=== PATIENT | female | born 1945 | race Caucasian/White ===

== ENCOUNTER 2023-06-15 23:00 | Observation (INO) | payer OTHER, SELFPAY ==
[2023-06-15] VITALS (7 sets, daily range): BP systolic 111–161; BP diastolic 58–95; BMI 15.3
[2023-06-15 17:39] LABS: % Basophils 0.7 % (0-2); % Eosinophils 2.7 % (0-6); % Immature Granulocytes 0.6 % (0-0.5); % Lymphocytes 17.9 % (20.5-51.1); % Monocytes 10.1 % (1.7-9.3); Absolute Basophils 0.1 10^3/uL (0-0.2); Absolute Eosinophils 0.3 10^3/uL (0-0.7); Absolute Immature Granulocytes 0.1 10^3/uL (0-0.05); Absolute Lymphocytes 2.2 10^3/uL (1.2-3.4); Absolute Monocytes 1.3 10^3/uL (0.1-0.6); Absolute Neutrophils 8.4 10^3/uL (1.4-6.5); Hematocrit 34.7 % (37.0-47.0); Hemoglobin 11.5 g/dL (12.0-16.0); Mean Corp Hgb Conc. 33.1 g/dL (33.0-37.0); Mean Corpuscular Hgb 33.5 pg (27.0-31.0); Mean Corpuscular Volume 101.2 fL (81.0-99.0); Nucleated Red Blood Cells % 0 %; Red Blood Cell Count 3.43 10^6/uL (4.20-5.40); Red Cell Dist. Width 20.9 % (11.5-14.5); White Blood Cell Count 12.4 10^3/uL (4.8-10.8)
[2023-06-15 17:53] LABS: Mean Platelet Volume 10.1 fL (7.4-10.4); Platelet Count 611 10^3/uL (130-400)
[2023-06-15 18:04] LABS: ALT (SGPT) 13 U/L (0-35); AST (SGOT) 30 U/L (14-36); Albumin 3.1 g/dl (3.5-5.0); Alkaline Phosphatase 119 U/L (38-126); Blood Urea Nitrogen 8 mg/dl (7-17); Calcium 8.2 mg/dl (8.4-10.2); Carbon Dioxide 28 mmol/L (22-30); Chloride 102 mmol/L (98-107); Estimated Creatinine Clearance 46 ml/min; Glucose 91 mg/dl (70-99); Lipase 129 U/L (23-300); Sodium 132 mmol/L (135-145); Total Bilirubin 1.1 mg/dl (0.2-1.3); Total Protein 6.1 g/dl (6.3-8.2); eGFR > 60.00
[2023-06-15] MEDS: NSS 1000 IV ×2 (19:14→23:17)
[2023-06-15] MEDS: ZOFRAN 4 MG IV (19:14)
[2023-06-15 21:05] LABS: Urine Albumin Trace (Neg - Trace); Urine Bilirubin 1+ (Negative); Urine Character Clear (Clear); Urine Color Yellow; Urine Glucose Negative (Negative); Urine Ketone Trace (Negative); Urine Leukocyte Negative (Negative); Urine Nitrite Negative (Negative); Urine Occult Blood Negative (Negative); Urine Urobilinogen 3+ (Neg - 1+)
--- NOTE | 2023-06-15 21:31 | ED.GENMED ---
History of Present Illness
General
Chief Complaint: Abdominal Symptoms
Source: patient
Exam Limitations: none
Time Seen by Provider: 06/15/23 18:49
Travel History
Have you had any contact with someone who has COVID-19?: No
Do you have any symptoms of coronavirus? Fever > 100 degrees, chills, cough, shortness of breath, sore throat, loss of taste or smell, muscle aches, or headache?: No
History of Present Illness
History of Present Illness:
This is a 77 year old female that comes in with c/o 5 days of vomiting. States that she was unable to keep anything down. States that water was even hard. States that she did not have any vomiting today. States that she is also wondering what is
going on with her leg. States that she doesn't even know who the doctor is and that the PT who was there today at her home is also wondering. Patient states that she was nauseated and vomiting with a headache. Denies any fever, chils, chest pain,
SOB, abd pain, diarrhea, dizziness, urinary burning.
Past History
Past History
ED Past Medical History: CVA (X 3), HTN, Hypercholesterolemia, Psychiatric (Anxiety) and Other (Left leg fracture, Back and neck pain. Spinal fractures, PVD, Blind left eye, )
ED Past Surgical History: None, Orthopedic (Right femur fracture repair), Tonsilectomy and Other (Cataracts, Depression)
Social History
Tobacco: Smoker
Alcohol: Occasional
Personal:
Living: with family
Employment: Not employed
Review of Systems
Review of Systems
All Other Systems: ROS reviewed and negative except as documented in HPI and ROS
Constitutional: Reports no symptoms; Denies fever or chills
EENT: Reports no symptoms
Respiratory: Reports no symptoms; Denies cough or trouble breathing
Cardiac: Reports no symptoms; Denies chest pain
ABD/GI: Reports nausea and vomiting; Denies abdominal pain or diarrhea
: Reports no symptoms; Denies dysuria, frequency or urgency
Musculoskeletal: Reports no symptoms
Skin: Reports no symptoms
Neurological: Reports headache; Denies dizzy
Psychiatric: Reports no symptoms
Phy Exam
General Physical Exam
General Presentation: no apparent distress
General age: appears stated age
General Skin: warm and dry
General Habitus: elderly
General Mental: alert
General Hydration: appears well hydrated
ENT Exam
ENT Exam: TM's normal, pharynx normal and neck supple
Eye Exam
Eye Exam: EOMI
Cardiovascular Exam
Cardiovascular Exam: regular rate/rhythm, no edema and normal peripheral pulses
Pulmonary Exam
Pulmonary Exam: lungs clear, no respiratory distress, no rales, chest non tender, no crackles, no rhonchi, no wheezing and no cough
Gastrointestinal Exam
Gastrointestinal Exam: normal bowel sounds, non tender, soft, no organomegaly, no pulsatile mass and non distended
Musculoskeletal Exam
Musculoskeletal Exam: other (Knee brace on left leg. Patient was told no weight baring as has Tibial plateau fracture. )
Skin Exam
Skin Exam: normal color, warm/dry and no petechia
Psychiatric Exam
Psychiatric Exam: normal mood/affect
Course
Orders/Labs/Results
Orders:
Orders
06/15/23 17:34
Complete Blood Count/With Diff Urgent
Comprehensive Metabolic Panel Urgent
Lipase Urgent
06/15/23 19:06
0.9% Sodium Chloride 1000 ml [Nss] 1,000 ml IV BOLUS
Ondansetron Injectable [Zofran] 4 mg IV NOW STA
06/15/23 20:25
Straight cath- Treatment ONCE
06/15/23 20:49
Urinalysis Reflex To Culture Urgent
Date Specimen was Collected: 06/15/23
Time Specimen was Collected: 20:31
06/15/23 22:37
Obstruct Series W/PA Chest [CR Obstruct Series W/pa Chest] Urgent
Comment:
Reason For Exam: vomiting
06/15/23 22:43
Consult Orthopedic [ORTHOPEDIC CONSULT] Routine
Consulting Provider: Stephen Kumar
Was physician already notified: No
Reason for consult: tibial plateau fx since 05/20 has not followed up
06/15/23 22:44
Admit/Transfer Patient As Directed
Co-Sign Provider:
Level of Care: Observation services
Assign to:: Medical/Surgical
Physician / Group: enedelia benitez
Diagnosis: vomiting concern obst vs gastroenteritis, tibial plateau fx left
Code Status As Directed
Resuscitation Status: Do not resuscitate
Reached after discussion with pt or family/Healthcare POA: Yes
Based on pt advanced directive or healthcare POA form: Yes
Decision communicated with: per pt
Consult Notification Routine
Specialty to Notify: Orthopedics
06/15/23 22:45
0.9% Sodium Chloride 1000 ml [Nss] 1,000 ml IV 80 mls/hr
DNR Bracelet Application ONCE
06/15/23 23:23
Acetaminophen [Tylenol] 650 mg PO Q4HPRN PRN
Ondansetron Injectable [Zofran] 4 mg IV Q6HPRN PRN
06/15/23 23:23
Activity As Directed
Activity Level: As Tolerated
Vital Signs As Directed
Frequency: Per unit guidelines
Ot Eval And Treat Routine
Pt Eval And Treat Routine
Activity Level: With Assistance
DX Deep Vein Thrombosis Video Routine
06/16/23 06:00
Complete Blood Count/With Diff IN AM
Comprehensive Metabolic Panel IN AM
06/16/23 08:00
Aspirin Low Dose EC [Aspir Low (Enteric Coated)] 81 mg PO DAILY
Cholecalciferol (Vitamin D3) [VITAMIN D3 (cholecalciferol)] 25 mcg PO DAILY
Cyanocobalamin [Vitamin B-12] 1,000 mcg PO DAILY
06/16/23 18:00
Enoxaparin Sodium [Lovenox] 40 mg SC QPM
06/16/23 22:00
Atorvastatin [Lipitor] 40 mg PO HS
Clonazepam [Klonopin] 1 mg PO HS
Temazepam [Restoril] 30 mg PO HS
Abnormal Lab Results
06/15/23 06/15/23
17:34 20:49
WBC 12.4 H 10^3/uL
(4.8-10.8)
RBC 3.43 L 10^6/uL
(4.20-5.40)
Hgb 11.5 L g/dL
(12.0-16.0)
Hct 34.7 L %
(37.0-47.0)
MCV 101.2 H fL
(81.0-99.0)
MCH 33.5 H pg
(27.0-31.0)
RDW 20.9 H %
(11.5-14.5)
Plt Count 611 H 10^3/uL
(130-400)
Abs Immat Gran (auto) 0.1 H 10^3/uL
(0-0.05)
Absolute Neuts (auto) 8.4 H 10^3/uL
(1.4-6.5)
Absolute Monos (auto) 1.3 H 10^3/uL
(0.1-0.6)
Immature Gran % 0.6 H %
(0-0.5)
Lymphocytes % 17.9 L %
(20.5-51.1)
Monocytes % 10.1 H %
(1.7-9.3)
Sodium 132 L mmol/L
(135-145)
Calcium 8.2 L mg/dl
(8.4-10.2)
Total Protein 6.1 L g/dl
(6.3-8.2)
Albumin 3.1 L g/dl
(3.5-5.0)
Urine Ketones Trace A
(Negative)
Urine Bilirubin 1+ A
(Negative)
Urine Urobilinogen 3+ A
(Neg - 1+)
06/15/23 17:34
06/15/23 17:34
WBC slightly elevated. H/H low. Plt elevated. Sodium slightly low. Urine negative for infection. Lipase normal at 129. Urine negative for infection.
Vital Signs
Initial and Last Documented VS:
Initial Vital Signs
Temp Pulse Resp BP Pulse Ox
98 F 89 21 146/64 97
06/15/23 17:24 06/15/23 17:24 06/15/23 17:24 06/15/23 17:24 06/15/23 17:24
Last Documented Vital Signs
Temp Pulse Resp BP Pulse Ox
98.8 F 87 16 161/75 95
06/15/23 23:44 06/15/23 23:44 06/15/23 23:44 06/15/23 23:44 06/15/23 23:44
MDM/Problems Addressed
Differential Diagnosis Includes:
Viral GI syndrome. UTI,
MDM/Problems Addressed:
This is a 77 year old female that comes in with c/o nausea and vomiting. States that she has been vomiting for the past 5 days. Staes that she also has this brace on her left leg for the past 4 week and does not know who she is to follow up with.
Stats that PT was there today and they area also wondering who patient is to follow up with.
Will check labs. Give IV fluids and get Urine
Back into see patient. Patient is able to tolerate oral fluids. Nursing states that the patients daughter called and was yelling at her stating that the patient can't come home as they can't get her out of the house. According to the Discharge
summary patient was to follow up with the supervisory it specialist in 2 weeks ( Dr. Darling). Patient needs placement in a [facility] for rehab. Will admit as social admission. Hospitalist notified.
Chronic conditions affecting care:
NA
Acute Exacerbation and/or Progression of Chronic Illness:
NA
*Pulse Oximetry
Patient hypoxic: no
*EKG
Interpreted by ED Provider?: NA
Rate: EKG- N/A
*Critical Care Note
Total Time (30-74mins, 75-104mins- exclusive of procedures): Not Applicable
ED Attending Note
-
Portions of this chart may have been created with voice recognition software.� Occasional wrong word or��sound alike� substitutions may have occurred due to the inherent limitations of voice recognition software.
Discharge Plan
Departure
Patient Disposition: Admit
Date of Disposition: 06/15/23
Time of Disposition: 21:52
Admit to: Med/Surg
Presentation/result/management discussed w/ accepting MD/DO: Hospitalist
Patient with high blood pressure during this ER visit?: Yes
Covid-19: Not Applicable
Discharge Problem:
Hospital admission due to social situation, Nausea & vomiting
Interventions
Interventions:
*Risk Screen - Suicide Last Done: 06/15/23 17:27
*General Assessment Last Done: 06/15/23 17:27
*Neglect/Abuse Screening Last Done: 06/15/23 17:27
*ED COVID-19 Vaccine History Last Done: 06/15/23 17:27
*Nursing Disposition Last Done: 06/15/23 23:29
YF-Ypwcjz-Iiwsqtqube Assessment Last Done: 06/15/23 17:37
Discharge Date and Time
Discharge Date/Time: 06/15/23 23:30
--- NOTE | 2023-06-15 21:59 | HPS.HSE ---
Addendum entered and electronically signed by Mary Su MD 06/15/23 23:06:
I saw and examined the patient.
The DIGITAL MARKETING CONSULTANT's note was reviewed and I agree with the note.
Comment:
Ms. Ashley Kelly is a 77 yo woman with hx PUD, chronic anemia, essential thrombocytosis on hydroxyurea, hx CVA, chronic ambulatory dysfunction (wheelchair bound), tibial plateau fracture (admission 05/24) who presents to the ER with vomiting x
5 days that seems to have resolved today. Triage VS: T 98, P 89, RR 21, BP 146/64, SpO2 97%. Labs with WBC 12.4, Hg 11.5, PLT 611, Na 132, K+ 4.0, Cr 0.7, Glucose 91. On exam patient is in no acute distress, frail appearing with apparent
dementia, abdomen currently soft, non/tender, no LE swelling.
Patient likely had gastroenteritis that has now improved. Will obtain obstruction series. IV Zofran PRN, gently IVF.
Patient had recent tibial plateau fracture, non-operative management in knee immobilizer. Patient has not followed up with ortho, we will ask to see them to see patient here. PT/OT.
Original Note:
Family Physician
-
Family Physician: Vasu Fernando
Chief Complaint
-
Vomiting x 5 days, current tibial plateau fracture still in brace
History of Present Illness
77-year-old female complaining of 5 days of vomiting unable to keep anything down including with the use of Zofran. She reports no vomiting today. She has history of a tibial plateau fracture on 05/19/2023 and has been in brace with home PT visit
she is unable to get out of her home to follow-up with the orthopedic. Both she and the home PT are unsure which orthopedic she was to follow-up with, but according to records here she was due to follow-up with Dr. Nam Darling from orthopedics 2
weeks after her fracture. She is oriented to name but unsure of any of her past medical history she is also not familiar with current year or month.
She is past medical history of CVA x 3, HTN, HLD, anxiety, Hx gastric ulcer Hx upper GI bleed, Scherer's esophagus, PUD back and neck pain, spinal fractures, PVD, blind left eye, active smoker
Right femur repair, tonsillectomy, cataracts, depression, essential thrombocytosis, chronic leukopenia, chronic hyponatremia, chronic ambulatory dysfunction
Medical History
Past Medical History
Past Medical History: Reports Other (chronic ambulatory dysfunction wheelchair-bound, peptic ulcer disease, blood loss anemia, essential thrombocytosis, pancytopenia, CVA, hyponatremia, tobacco use, benzodiazepine dependence)
Past Surgical History: Reports Other (Right shoulder surgery)
Social History
Tobacco: Smoker
Alcohol: Occasional
Drug: None
Personal:
Living: With Family
Employment: Retired
Family History
Family History: Other (Mother age 59 unsure, father [place] unsure what age)
Allergies / Home Medications
Allergies reflects when Allergies were last updated in [employer].
Home Medications with original date entered in [employer]
Allergy/Medication List:
Allergies
Allergy/AdvReac Type Severity Reaction Status Date / Time
No Known Allergies Allergy Verified 05/08/23 14:46
Home Medications
aspirin 81 mg tablet,delayed release 81 mg PO DAILY Blood clot prevention/tx 02/19/21
atorvastatin 40 mg tablet 40 mg PO HS High cholesterol 02/19/21
clonazepam 1 mg tablet 1 mg PO HS Mental Health/Anxiety 05/08/23
temazepam 30 mg capsule 30 mg PO HS Sleep 05/08/23
cholecalciferol (vitamin D3) 25 mcg (1,000 unit) tablet (Vitamin D3) 25 mcg PO DAILY Supplement 05/19/23
cyanocobalamin (vitamin B-12) 1,000 mcg tablet (Vitamin B-12) 1,000 mcg PO DAILY Supplement 05/19/23
Review of Systems
-
History Source: Patient
A 12 point ROS was completed and negative except as noted: Yes
Constitutional: Reports Other (Unkempt appearance); Denies Fever or Fatigue
EENT: Denies Sore Throat or Runny Nose
Respiratory: Denies Trouble Breathing
Cardiac: Denies Chest Pain, Palpitations or Syncope
Abdomen/GI: Reports Nausea and Vomiting; Denies Abdominal Pain, Diarrhea, Constipated, Bloody Stools or Black Stools
: Denies Dysuria, Frequency, Flank Pain, Incontinence, Difficulty Voiding or Urgency
Musculoskeletal: Reports Other (Knee immobilizer in place to left lower extremity +2 dorsal pedal pulse, dorsiflexion and plantarflexion intact); Denies Joint Pain, Muscle Stiffness or Edema
Skin: Denies Itching or Rash
Neurological: Denies Dizzy, Headache or Weakness
Endocrine: Reports No Symptoms
Hematologic/Lymphatic: Reports No Symptoms
Psych: Reports Calm
Physical Exam
Vital Signs
Vital Signs
Temp Pulse Resp BP Pulse Ox
98 F 87 15 111/95 95
06/15/23 17:24 06/15/23 21:45 06/15/23 21:45 06/15/23 21:00 06/15/23 21:45
Physical Exam
General: No Pain, Fever or Chills
HEENT: NormoCephalic, Anicteric, Moist mucous membranes, [place] Conjunctivae and No Ptosis
Respiratory: Clear; No Wheezes, Rales or Rhonchi
Cardiac: S1/S2 and Regular Rhythm; No Murmur, Rub, Gallop or Peripheral Edema
GI: Soft, Non Tender, Non Distended, Normal Bowel Sounds and No Hepatosplenomegaly
Rectal: Deferred by Provider
Genito-urinary: Deferred by me
Musculoskeletal: No Clubbing, No Cyanosis, No Edema and Other (Knee immobilizer in place to left lower extremity +2 dorsal pedal pulse, dorsiflexion and plantarflexion intact)
Skin: Warm and Dry; No Rash
Neuro: AO x 3, No Motor Deficits, Nonfocal/grossly intact, Cranial Nerves Intact and No Sensory Deficits; No Slurred Speech or Facial Droop
Psych: Calm
Laboratory Results
-
06/15/23 17:34
06/15/23 17:34
Laboratory Results
Total Bilirubin 1.1 mg/dl (0.2-1.3) 06/15/23 17:34
AST 30 U/L (14-36) 06/15/23 17:34
ALT 13 U/L (0-35) 06/15/23 17:34
Alkaline Phosphatase 119 U/L (38-126) 06/15/23 17:34
Lipase 129 U/L (23-300) 06/15/23 17:34
Data Reviewed
-
Lab Data: Labs Reviewed by me
Impression/Plan
-
Impression/plan:
Observation MedSurg
#Acute leukocytosis on chronic leukopenia concern for obstruction versus gastroenteritis
WBC 12.4> 4.8 05/23/2023 baseline appears 3.9-4
Vomiting x 5 days
-Check obstruction series
-IV Zofran as needed
-IV NSS 80 cc/hr
-Follow CBC, BMP
#Tibial plateau fracture 05/20/2023
Patient is still currently in a knee brace
Was due to follow-up with Dr. Nam Darling 2 weeks after injury
-Has been receiving home PT but never followed up with Ortho
-Consult orthopedics
#Scherer's esophagus
#Peptic ulcer disease
#Upper GI bleed Hx
-Hgb stable
-Add IV PPI
#CVA x 3
-Continue aspirin, statin
#Hx of essential thrombocytosis
Was on hydroxyurea on discharge-no current meds listed
PLT 611
#Chronic hyponatremia
NA 132
-Follow BMP
#Chronic ambulatory dysfunction�wheelchair-bound
PT/OT/leather case finisher consult
#HLD
-Continue atorvastatin 40 mg at bedtime
#Anxiety/depression
-Continue clonazepam 1 mg at bedtime
#Insomnia
-Continue temazepam 30 mg at bedtime
#Active smoker
1/2 pack a day smoker x 57 years
-Cessation advised
#Hx history chronic back and neck pain
Blind left eye
#Cachexia from malnutrition, BMI 15.3 EKG
DVT prophylaxis
Subcu Lovenox
DNR
[2023-06-16] MEDS: KLONOPIN 1 MG PO ×2 (00:23→21:28)
[2023-06-16] MEDS: RESTORIL 30 MG PO ×2 (00:23→21:27)
[2023-06-16 06:19] LABS: % Basophils 0.6 % (0-2); % Immature Granulocytes 0.6 % (0-0.5); % Lymphocytes 21.2 % (20.5-51.1); % Neutrophils 63.6 % (42.2-75.2); Absolute Basophils 0.1 10^3/uL (0-0.2); Absolute Eosinophils 0.4 10^3/uL (0-0.7); Absolute Immature Granulocytes 0.1 10^3/uL (0-0.05); Absolute Lymphocytes 2.2 10^3/uL (1.2-3.4); Absolute Neutrophils 6.6 10^3/uL (1.4-6.5); Hematocrit 30.9 % (37.0-47.0); Hemoglobin 10.4 g/dL (12.0-16.0); Mean Corp Hgb Conc. 33.7 g/dL (33.0-37.0); Mean Corpuscular Hgb 34.1 pg (27.0-31.0); Mean Corpuscular Volume 101.3 fL (81.0-99.0); Mean Platelet Volume 10.2 fL (7.4-10.4); Nucleated Red Blood Cells % 0 %; Platelet Count 504 10^3/uL (130-400); Red Blood Cell Count 3.05 10^6/uL (4.20-5.40); Red Cell Dist. Width 20.7 % (11.5-14.5); White Blood Cell Count 10.3 10^3/uL (4.8-10.8)
[2023-06-16 07:21] LABS: ALT (SGPT) 11 U/L (0-35); AST (SGOT) 25 U/L (14-36); Albumin 2.4 g/dl (3.5-5.0); Alkaline Phosphatase 104 U/L (38-126); Blood Urea Nitrogen 7 mg/dl (7-17); Calcium 7.7 mg/dl (8.4-10.2); Carbon Dioxide 27 mmol/L (22-30); Chloride 106 mmol/L (98-107); Estimated Creatinine Clearance 46 ml/min; Glucose 60 mg/dl (70-99); Potassium 3.9 mmol/L (3.5-5.1); Sodium 133 mmol/L (135-145); Total Bilirubin 0.9 mg/dl (0.2-1.3); Total Protein 4.9 g/dl (6.3-8.2); eGFR > 60.00
--- NOTE | 2023-06-16 08:01 | W.PN.UPDATE ---
Update Note
Progress Note Update
I reviewed notes and xrays
Nothing to do from an orthopaedic standpoint this admission
Keep non WB on affected side with brace
Please have her F/U with Dr. Darling as outpatient within the next several weeks
His plan was for delayed Total Knee Replacement if necessary
thanks
GGMD
[2023-06-16 08:13] VITALS: BP 138/72
[2023-06-16] MEDS: ASPIR LOW (ENTERIC COATED) 81 MG PO (08:55)
[2023-06-16] MEDS: VITAMIN D3 (cholecalciferol) 25 MCG PO (08:55)
[2023-06-16] MEDS: VITAMIN B-12 1000 MCG PO (08:55)
--- NOTE | 2023-06-16 09:38 | W.PN.HOSP.TC ---
Today's Communication/Plan
-
see A/P
Assessment / Plan
Assessment / Plan
77 yo woman with hx PUD, chronic anemia, essential thrombocytosis, hx CVA, chronic ambulatory dysfunction (wheelchair bound), tibial plateau fracture (admission 05/24), HTN, HLD, anxiety, who presented to the ER with vomiting x 5 days that seems to
have resolved on DOA.�She has tibial plateau fracture on 05/19/2023 and has been in brace with home PT visit.
A/P:
# Resolved N/V, likely acute gastroenteritis that has improved.�
Obstruction series reviewed, Low-grade partial small bowel obstruction is not excluded. No evidence of free intraperitoneal air.
Cont IV Zofran PRN, cont gently IVF.�
clears and advance to regular
# Tibial plateau fracture 05/20/2023
Appreciate ortho input, Keep non WB on affected side with brace
Follow up with ortho Dr. Darling as outpatient within the next several weeks
Daughter requests follow up L knee XR, ordered
PT OT eval
# Scherer's esophagus
# Peptic ulcer disease
# h/o Upper GI bleed
Hgb stable
IV PPI
# h/o CVA
Continue aspirin, statin
# Essential thrombocytosis
Pt was previously on hydroxyurea, taken off since recent blood transfusion
Informed pt and daughter to continue follow up with heme outpt
# Chronic hyponatremia, mild
# Chronic ambulatory dysfunction, wheelchair-bound
PT/OT eval
# HLD
Continue atorvastatin 40 mg at bedtime
# Anxiety/depression
Continue clonazepam 1 mg at bedtime
# Insomnia
Continue temazepam 30 mg at bedtime
# Active smoker
1/2 pack a day smoker x 57 years
Cessation advised
# history chronic back and neck pain
# Blind left eye
# Cachexia with severe malnutrition
BMI 15.3
# Sacral decub ulcer POA
wound care CS
DVT prophylaxis: Subcu Lovenox
DNR
DW RN
DW daughter on the phone
Anticipated Discharge: 24 - 48 hours
Subjective/Interval History
-
Date of Service: June 16, 2023
Objective Data
-
Labs:
Laboratory Results
06/16/23
05:21
WBC 10.3
Hgb 10.4 L
Hct 30.9 L
Plt Count 504 H
Sodium 133 L
Potassium 3.9
Chloride 106
Carbon Dioxide 27
BUN 7
Creatinine 0.7
Glucose 60 L
Calcium 7.7 L
Total Bilirubin 0.9
AST 25
ALT 11
Alkaline Phosphatase 104
Vital Signs:
Vital Signs
Temp Pulse Resp BP Pulse Ox
36.4 C 82 16 138/72 92
06/16/23 08:13 06/16/23 08:13 06/16/23 08:13 06/16/23 08:13 06/16/23 08:13
Review of Systems
-
All other systems: Reviewed and negative
Abdomen/GI: Denies Nausea or Vomiting
Physical Exam
-
General: Well Developed, Comfortable, Conversant, Appears Chronically Ill and Cachectic
Respiratory: Clear to Auscultation and Non Labored Respirations; Negative Accessory Resp Muscle Use
Cardiac: Regular Rhythm and S1/S2; Negative Murmur
GI: Soft, Nontender and Nondistended
Neuro: Awake
Psych: Calm and Intact Judgement/Insight (somewhat)
Data Reviewed
-
Labs: Labs Reviewed by me
--- NOTE | 2023-06-16 11:33 | PTCARENOTE ---
Per daughter patient has sacral ulcer present; Patient's skin reassessed with second RN present, sacrum is blanchable red, no pressure ulcers noted; patient incontinent of bowel and bladder, perineal area cleansed, and zinc oxide paste applied;
patient on static air overlay mattress
--- NOTE | 2023-06-16 12:02 | WOUNDNOTE ---
[facility] RN NOTE: Consult received for sacral wound. Reviewed notes and spoke to patient's RN, Giselle. Sacral skin is blanchable red, no open areas noted. Heels intact, adhesive foam applied. Patient is on a properly inflated static air overlay. Will
continue to follow as needed.
[2023-06-16 12:49] VITALS: BMI 15.3
[2023-06-16 14:08] VITALS: BP 124/55; PULSE 85; O2SAT 92
[2023-06-16 14:18] VITALS: BP 124/55; PULSE 85; O2SAT 92
[2023-06-16 14:43] LABS: Glucose - Point of Care 113 mg/dl (70-99)
--- NOTE | 2023-06-16 15:23 | CM ---
Initial assessment completed with patient who lives with her in a ranch home with basement and 5 steps to enter, Has a mauro-walker, shower chair and uses a wheelchair daily, Requires assistance for transfers,mobility and all ADL's. [employer]OR [employer] SALES was
receiving HH services with [facility]. Pharmacy is [facility] @ [address] [place] [address] in [place]. PCP is Dr. Vasu Loya in [place]. Anticipate SNF at discharge.
[2023-06-16 15:40] VITALS: BP 144/62
[2023-06-16] MEDS: LOVENOX 40 MG SC (17:54)
[2023-06-16] MEDS: LIPITOR 40 MG PO (21:28)
[2023-06-16 23:17] VITALS: BP 137/56
[2023-06-17 06:32] LABS: Hematocrit 29.6 % (37.0-47.0); Hemoglobin 9.9 g/dL (12.0-16.0); Mean Corp Hgb Conc. 33.4 g/dL (33.0-37.0); Mean Corpuscular Hgb 33.9 pg (27.0-31.0); Mean Corpuscular Volume 101.4 fL (81.0-99.0); Mean Platelet Volume 10.6 fL (7.4-10.4); Platelet Count 508 10^3/uL (130-400); Red Blood Cell Count 2.92 10^6/uL (4.20-5.40); Red Cell Dist. Width 20.1 % (11.5-14.5)
[2023-06-17 07:01] LABS: Blood Urea Nitrogen 8 mg/dl (7-17); Calcium 7.9 mg/dl (8.4-10.2); Carbon Dioxide 26 mmol/L (22-30); Chloride 101 mmol/L (98-107); Estimated Creatinine Clearance 53 ml/min; Glucose 82 mg/dl (70-99); Magnesium 1.5 mg/dl (1.6-2.3); Potassium 3.6 mmol/L (3.5-5.1); Sodium 132 mmol/L (135-145); eGFR > 60.00
[2023-06-17 07:12] VITALS: BP 143/63
[2023-06-17] MEDS: ASPIR LOW (ENTERIC COATED) 81 MG PO (09:26)
[2023-06-17] MEDS: VITAMIN B-12 1000 MCG PO (09:26)
[2023-06-17] MEDS: VITAMIN D3 (cholecalciferol) 25 MCG PO (09:26)
--- NOTE | 2023-06-17 10:47 | W.PN.HOSP.TC ---
Today's Communication/Plan
-
dc
Assessment / Plan
Assessment / Plan
77 yo woman with hx PUD, chronic anemia, essential thrombocytosis, hx CVA, chronic ambulatory dysfunction (wheelchair bound), tibial plateau fracture (admission 05/24), HTN, HLD, anxiety, who presented to the ER with vomiting x 5 days that seems to
have resolved on DOA.�She has tibial plateau fracture on 05/19/2023 and has been in brace with home PT visit.
A/P:
# Resolved N/V, likely acute gastroenteritis that has improved.�
Resolved GI symptoms. Tolerating diet. Had a bowel movement.
# Tibial plateau fracture 05/20/2023
Appreciate ortho input, Keep non WB on affected side with brace
Follow up with ortho Dr. Darling as outpatient within the next several weeks
L knee XR shows healing left lateral tibial plateau fracture. Orthopedic input noted-recommends nonweightbearing in the knee immobilizer and follow-up with them as outpatient.
PT OT eval recommends rehab but the patient is adamant of going home. She understands the recommendations well. Will consult case management for providing additional services including PT at home if possible.
# Scherer's esophagus
# Peptic ulcer disease
# h/o Upper GI bleed
Hgb stable
IV PPI
# h/o CVA
Continue aspirin, statin
# Essential thrombocytosis
Pt was previously on hydroxyurea, taken off since recent blood transfusion
Informed pt and daughter to continue follow up with heme outpt
# Chronic hyponatremia, mild .
Chronic . FR at home
# Chronic ambulatory dysfunction, wheelchair-bound
cw PT/OT eval
# HLD
Continue atorvastatin 40 mg at bedtime
# Anxiety/depression
Continue clonazepam 1 mg at bedtime
# Insomnia
Continue temazepam 30 mg at bedtime
# Active smoker
1/2 pack a day smoker x 57 years
Cessation advised
# history chronic back and neck pain
# Blind left eye
# Cachexia with severe malnutrition
BMI 15.3
# Sacral decub ulcer POA
wound care CS
DNR
Left message to daughter on her voicemail
Anticipated Discharge: Today
Subjective/Interval History
-
Date of Service: June 17, 2023
No more GI symptoms. Currently put on a regular diet which patient states he is tolerating.
No nausea or vomiting. No abdominal pain. She had a bowel movement.
Not much pain from the left knee.
Objective Data
-
Labs:
Laboratory Results
06/17/23
04:29
WBC 11.0 H
Hgb 9.9 L
Hct 29.6 L
Plt Count 508 H
Sodium 132 L
Potassium 3.6
Chloride 101
Carbon Dioxide 26
BUN 8
Creatinine 0.6
Glucose 82
Calcium 7.9 L
Vital Signs:
Vital Signs
Temp Pulse Resp BP Pulse Ox
97.9 F 78 16 143/63 92
06/17/23 07:12 06/17/23 07:12 06/17/23 07:12 06/17/23 07:12 06/17/23 07:12
I&O
06/16/23 06/17/23 06/18/23
06:59 06:59 06:59
Intake Total 780 / 780
Balance 780 / 780
Review of Systems
-
Constitutional: Denies Fever
EENT: Denies Sore Throat
Respiratory: Denies Cough or Trouble Breathing
Cardiac: Denies Chest Pain
Neuro: Denies Dizzy
Physical Exam
-
General: No Apparent Distress
HEENT: Moist Mucous Membranes
Respiratory: Clear to Auscultation
Cardiac: Regular Rhythm and S1/S2
GI: Soft, Nontender, Nondistended and Normal Bowel Sounds
Musculoskeletal: Other (Left leg in the knee immobilizer); Negative No Edema
Neuro: AO x 3
Psych: Calm; Negative Confused or Agitated
Data Reviewed
-
Labs: Labs Reviewed by me
--- NOTE | 2023-06-17 10:57 | W.DS.TRANS ---
DC Summary - Cell Liner
-
Discharge Instructions:
Discharge Diagnosis/Procedures Left lateral tibial plateau fracture; acute
nausea vomiting suspected gastroenteritis
Diet Low Residue,Restrict fluids to 48 oz
Additional Diets Low residue diet for a week and resume a regular
diet.
Activity Do not bear weight L leg,As tolerated
Driving Restrictions No driving
Bathing Restrictions None
Blood Work BMP in a week-arrange through PCP
Other Services PT,VN
Instructions:
Stand-Alone Forms:
Changes to Home Medications: No
Discharge Medications:
DC Medications w/original date entered in [employer]
aspirin 81 mg tablet,delayed release 81 mg PO DAILY Blood clot prevention/tx 02/19/21
atorvastatin 40 mg tablet 40 mg PO HS High cholesterol 02/19/21
clonazepam 1 mg tablet 1 mg PO HS Mental Health/Anxiety 05/08/23
temazepam 30 mg capsule 30 mg PO HS Sleep 05/08/23
cholecalciferol (vitamin D3) 25 mcg (1,000 unit) tablet (Vitamin D3) 25 mcg PO DAILY Supplement 05/19/23
cyanocobalamin (vitamin B-12) 1,000 mcg tablet (Vitamin B-12) 1,000 mcg PO DAILY Supplement 05/19/23
acetaminophen 325 mg tablet 650 mg PO Q4HPRN PRN mild pain/RODAS #1 tab 06/17/23
Home Medication Changes
Pending Results: No
--- NOTE | 2023-06-17 10:57 | W.DCSUMMARY ---
Discharge Summary
Discharge Data
Date of Admission: 06/15/23
Date of Discharge: 06/17/23
-
Pending Results: No
Hospital Course
Primary diagnosis:
Acute self-limiting nausea vomiting suspected secondary to acute gastroenteritis
Recent left tibial plateau fracture with no new complications
Chronic hyponatremia
Secondary diagnosis:
Scherer's esophagus
Peptic ulcer disease
h/o Upper gastrointestinal bleed
h/o stroke
Essential thrombocytosis
Current smoker
Hyperlipidemia
Hospital course:
77 yo woman with hx PUD, chronic anemia, essential thrombocytosis, hx CVA, chronic ambulatory dysfunction (wheelchair bound), tibial plateau fracture (admission 05/24), HTN, HLD, anxiety, who presented to the ER with vomiting x 5 days that seems to
have resolved on DOA.�She has tibial plateau fracture on 05/19/2023 and has been in brace with home PT visit.
A/P:
# Acute nausea vomiting-resolved N/V, likely acute gastroenteritis that has improved.�
Symptoms are acute or without acute abdomen. Her initial abdominal x-ray showed the folds of small bowel in the left upper quadrant, with mild dilation. There are a few air-fluid levels within small bowel loops on decubitus view. Gas pattern most
suggestive of enteritis or ileus/bowel stasis. Low-grade partial small bowel obstruction is not excluded.
Her symptoms are self-limiting. She had a bowel movement which. She had benign abdomen. Suspect more gastroenteritis than obstruction. Not on any narcotic pain medication.
# Tibial plateau fracture 05/20/2023
L knee XR shows healing left lateral tibial plateau fracture.� Orthopedic input noted-recommends nonweightbearing in the knee immobilizer and follow-up with them as outpatient.Follow up with ortho Dr. Darling as outpatient within the next several
weeks
PT OT eliezer recommends rehab but the patient is adamant of going home.� She understands the recommendations well.�
# Essential thrombocytosis
Pt was previously on hydroxyurea, taken off since recent blood transfusion
Informed pt and daughter to continue follow up with heme outpt
Current platelets of 508
# Chronic hyponatremia, mild .
Chronic . FR at home
# Active smoker
1/2 pack a day smoker x 57 years
Cessation advised
DNR
Consultants on board:
Orthopedic Dr. Kumar
Discharge Plan
-
Patient Disposition: Home with Home Care
Discharge Diagnosis/Procedures: Left lateral tibial plateau fracture; acute nausea vomiting suspected gastroenteritis
Diet: Low Residue and Restrict fluids to 48 oz
Additional Diets: Low residue diet for a week and resume a regular diet.
Activity: As tolerated and Do not bear weight L leg
Driving Restrictions: No driving
Bathing Restrictions: None
Blood Work: BMP in a week-arrange through PCP
Other Services: VN and PT
Referrals:
Vasu Fernando MD [Family Provider] - in less than 1 week
Nam Darling MD [Active] - in two weeks
Prescriptions:
New
acetaminophen 325 mg Tablet
650 mg PO Q4HPRN PRN (Reason: mild pain/RODAS) Qty: 1 0RF
Continued
atorvastatin 40 MG tablet
40 mg PO HS
aspirin 81 MG tablet,delayed release (DR/EC)
81 mg PO DAILY
clonazepam 1 mg Tablet
1 mg PO HS
Patient Comments:
06/15/2023: last filled 06/03/23, 30 tabs for 30 days from [facility]
temazepam 30 mg Capsule
30 mg PO HS
Patient Comments:
06/15/2023: last filled 05/29/23, 30 tabs for 30 days from [facility]
cyanocobalamin (vitamin B-12) [Vitamin B-12] 1,000 mcg Tablet
1,000 mcg PO DAILY
cholecalciferol (vitamin D3) [Vitamin D3] 25 mcg (1,000 unit) Tablet
25 mcg PO DAILY
[2023-06-17 15:32] VITALS: BP 112/57
--- NOTE | 2023-06-17 15:53 | CM ---
Addendum entered by Hank Mittal 06/17/23 17:43:
[facility] Fax # is [phone].
Original Note:
Patient has been medically cleared for discharge to home with resumption of [facility], PT/OT services. D[facility] Deanna and [facility]. Ambulance transport to be scheduled.
[2023-06-17] MEDS: LOVENOX 40 MG SC (17:11)
== END 2023-06-17 18:26 | disposition home health service (06) ==
LOC: 2 SOUTH 23:00
PROVIDERS: Clinical Nurse Specialist Family Health; Emergency Medicine; Internal Medicine; ADMITTING PHYSICIAN Student in an Organized Health Care Education/Training Program; ATTENDING PHYSICIAN Internal Medicine; CONSULT PHYSICIAN Orthopaedic Surgery Hand Surgery; EMERGENCY PHYSICIAN Emergency Medicine; FAMILY PHYSICIAN Family Medicine
DX: R11.2 Nausea with vomiting, unspecified (principal); R10.9 Unspecified abdominal pain; R51.9 Headache, unspecified; S82.142D Displaced bicondylar fracture of left tibia, subsequent encounter for closed fracture with routine healing; X58.XXXD Exposure to other specified factors, subsequent encounter; F17.210 Nicotine dependence, cigarettes, uncomplicated; E78.00 Pure hypercholesterolemia, unspecified; I10 Essential (primary) hypertension; F32.A Depression, unspecified; K22.70 Barrett's esophagus without dysplasia; E87.1 Hypo-osmolality and hyponatremia; G47.00 Insomnia, unspecified; E43 Unspecified severe protein-calorie malnutrition; E88.A Wasting disease (syndrome) due to underlying condition; L89.159 Pressure ulcer of sacral region, unspecified stage; M25.462 Effusion, left knee; F41.9 Anxiety disorder, unspecified; H54.40 Blindness, one eye, unspecified eye; D72.829 Elevated white blood cell count, unspecified; D64.9 Anemia, unspecified; Z68.1 Body mass index [BMI] 19.9 or less, adult; F13.20 Sedative, hypnotic or anxiolytic dependence, uncomplicated; D47.3 Essential (hemorrhagic) thrombocythemia; Z99.3 Dependence on wheelchair; Z86.73 Personal history of transient ischemic attack (TIA), and cerebral infarction without residual deficits; Z87.11 Personal history of peptic ulcer disease; Z66 Do not resuscitate
CPT/HCPCS: 51701; 73564; 74022; 80048; 80053; 81003; 82962; 83690; 83735; 85025; 85027; 96361; 96374; 97163; 97167; 97530; 99285; G0378

== ENCOUNTER 2023-06-27 19:54 | Inpatient (IN) | payer OTHER, SELFPAY ==
[2023-06-27] VITALS (9 sets, daily range): BP systolic 103–138; BP diastolic 49–71; BMI 15.5
[2023-06-27 15:31] LABS: % Basophils 0.4 % (0-2); % Eosinophils 2.4 % (0-6); % Lymphocytes 6.6 % (20.5-51.1); % Monocytes 6.5 % (1.7-9.3); % Neutrophils 83.1 % (42.2-75.2); Absolute Basophils 0.1 10^3/uL (0-0.2); Absolute Eosinophils 0.5 10^3/uL (0-0.7); Absolute Immature Granulocytes 0.2 10^3/uL (0-0.05); Absolute Lymphocytes 1.4 10^3/uL (1.2-3.4); Absolute Monocytes 1.3 10^3/uL (0.1-0.6); Absolute Neutrophils 17.2 10^3/uL (1.4-6.5); Hematocrit 38.7 % (37.0-47.0); Hemoglobin 12.5 g/dL (12.0-16.0); Mean Corp Hgb Conc. 32.3 g/dL (33.0-37.0); Mean Corpuscular Hgb 33.3 pg (27.0-31.0); Mean Corpuscular Volume 103.2 fL (81.0-99.0); Mean Platelet Volume 10.8 fL (7.4-10.4); Nucleated Red Blood Cells % 0 %; Platelet Count 665 10^3/uL (130-400); Red Blood Cell Count 3.75 10^6/uL (4.20-5.40); Red Cell Dist. Width 18.9 % (11.5-14.5); White Blood Cell Count 20.7 10^3/uL (4.8-10.8)
--- NOTE | 2023-06-27 15:35 | ED.GENMED ---
History of Present Illness
General
Chief Complaint: Change in Mental Status
Time Seen by Provider: 06/27/23 15:22
Travel History
Have you had any contact with someone who has COVID-19?: No
Do you have any symptoms of coronavirus? Fever > 100 degrees, chills, cough, shortness of breath, sore throat, loss of taste or smell, muscle aches, or headache?: No
History of Present Illness
History of Present Illness:
77-year-old female with history of stroke with resultant right hand weakness, hypertension, and hyperlipidemia presents to the emergency department for evaluation of vomiting for the past 2 days along with confusion. Presents with her ,
states that she has not 'made any sense' for the past 1 to 2 days. Was recently admitted to this hospital just over 1 week ago. On arrival the patient is profoundly confused and disoriented, apparently baseline mental status is fully
oriented. She is quite cachectic and frail
Past History
Past History
ED Past Medical History: CVA (X 3), HTN, Hypercholesterolemia, Psychiatric (Anxiety) and Other (Left leg fracture, Back and neck pain. Spinal fractures, PVD, Blind left eye, )
ED Past Surgical History: None, Orthopedic (Right femur fracture repair), Tonsilectomy and Other (Cataracts, Depression)
Social History
Tobacco: Smoker
Alcohol: Occasional
Personal:
Living: with family
Employment: Not employed
Review of Systems
Review of Systems
Allergies reviewed?: Yes
All Other Systems: ROS reviewed and negative except as documented in HPI and ROS
Phy Exam
Physical Exam
Physical Exam:
GEN: Profoundly cachectic and frail, toxic appearing, altered
Eyes: PERRLA, asymmetric extraocular motions due to prior left ocular injury
HENT: NCAT, oral mucosa dry
Lungs: Coarse crackles in the bases although this may be transmitted upper airway mucus
Cardiac: RRR, no M/R/G, no peripheral edema. Radial pulses 2+ bilat
Abdomen: S, NT, ND, NABS, no masses or hepatosplenomegaly
Neuro: Somnolent but arouses to voice, oriented to self and place only, disoriented to time, markedly slurred speech. Right upper extremity weakness noted, this is apparently baseline from prior stroke, no other focal deficits
MSK: No gross deformity or ecchymosis
Skin: No rashes, petechiae. Normal color, no pallor or jaundice.
Psych: Disheveled, poor hygiene
Course
Orders/Labs/Results
Orders:
Orders
06/27/23 15:22
Complete Blood Count/With Diff Urgent
06/27/23 15:34
CT Head W/o Iv Contrast Urgent
Comment:
Reason For Exam: altered mental status
06/27/23 16:17
Alcohol Urgent
Comprehensive Metabolic Panel Urgent
Lactic Acid Q4H
Comment: CANCEL 2nd LACTIC ACID IF 1st LACTIC ACID IS LESS THAN 2
Serum Osmolality Urgent
Urinalysis Reflex To Culture Urgent
Date Specimen was Collected: 06/27/23
Time Specimen was Collected: 15:52
Urine Microscopic Reflex Cult Urgent
Blood Culture Q30M
LYNDSAY Source: Blood/Venous
Specimen Description:
Blood Culture Q30M
LYNDSAY Source: Blood/Venous
Specimen Description:
Urine Culture Urgent
LYNDSAY Source: U
Specimen Description:
Date Specimen was Collected: 06/27/23
Time Specimen was Collected: 15:52
06/27/23 16:22
Venous Blood Gas Urgent
%Oxygen/Room Air: 89
06/27/23 16:23
Straight Cath As Directed
Frequency: One time now
06/27/23 17:01
Cefepime HCl [Maxipime] 1,000 mg IV NOW STA
06/27/23 18:12
CT Abd/pel Without Iv Or Oral Urgent
Comment:
Reason For Exam: urosepsis, eval for obstruction
06/27/23 18:19
0.9% Sodium Chloride 1000 ml [Nss] 1,000 ml IV BOLUS
06/27/23 18:40
Admit/Transfer Patient As Directed
Co-Sign Provider:
Level of Care: Inpatient admission
Assign to:: Medical/Surgical
Physician / Group: ne mercado
Diagnosis: sepsis 2/2 uti
Reason for Hospitalization: sepsis 2/2 uti
Expected length of stay greater than two midnights?: Yes
ELOS- Estimated Length of Stay in days: 4
I certify the patient meets the requirements for IP care: Yes
Code Status As Directed
Resuscitation Status: Do not resuscitate
Reached after discussion with pt or family/Healthcare POA: Yes
Based on pt advanced directive or healthcare POA form: Yes
Decision communicated with: per pt
06/27/23 18:41
DNR Bracelet Application ONCE
06/27/23 18:51
Bladder Scan As Directed
Follow Bladder Retention/Intermittent Cath Algorithm?: Yes
PRN if no void in __ hours: 6
Frequency: Per Retention Algorithm
If Bladder Scan Result >: 400
then:: Straight cath
Straight Cath As Directed
Frequency: Per Retention Algorithm
Additional Instructions: straight cath as needed per acute urinary retention algorithm for 24 hrs
Additional Instructions: for bladder scan greater than 400 mL
Abnormal Lab Results
06/27/23 06/27/23 06/27/23
15:22 16:17 16:22
WBC 20.7 H 10^3/uL
(4.8-10.8)
RBC 3.75 L 10^6/uL
(4.20-5.40)
MCV 103.2 H fL
(81.0-99.0)
MCH 33.3 H pg
(27.0-31.0)
MCHC 32.3 L g/dL
(33.0-37.0)
RDW 18.9 H %
(11.5-14.5)
Plt Count 665 H 10^3/uL
(130-400)
MPV 10.8 H fL
(7.4-10.4)
Abs Immat Gran (auto) 0.2 H 10^3/uL
(0-0.05)
Absolute Neuts (auto) 17.2 H 10^3/uL
(1.4-6.5)
Absolute Monos (auto) 1.3 H 10^3/uL
(0.1-0.6)
Immature Gran % 1.0 H %
(0-0.5)
Neutrophils % 83.1 H %
(42.2-75.2)
Lymphocytes % 6.6 L %
(20.5-51.1)
VBG pCO2 65 H mmHg
(35-48)
VBG HCO3 35.1 H mmol/L
(22-27)
Sodium 134 L mmol/L
(135-145)
Chloride 94 L mmol/L
(98-107)
Carbon Dioxide 35 H mmol/L
(22-30)
BUN 35 H mg/dl
(7-17)
Total Protein 5.8 L g/dl
(6.3-8.2)
Albumin 2.8 L g/dl
(3.5-5.0)
Ur Occult Blood Reflex 1+ A
(Negative)
Leukocyte Esterase Rfl 2+ A
(Negative)
Urine RBC 3-6 A /HPF
(0-2)
Urine WBC (Reflex) >100 A /HPF
(0-5)
Urine Bacteria (Reflex) Many A
(Negative)
06/27/23 15:22
06/27/23 16:17
Vital Signs
Initial and Last Documented VS:
Initial Vital Signs
Temp Pulse Resp BP Pulse Ox
97.8 F 84 13 122/59 90
06/27/23 15:01 06/27/23 15:01 06/27/23 15:01 06/27/23 15:01 06/27/23 15:01
Last Documented Vital Signs
Temp Pulse Resp BP Pulse Ox
97.8 F 84 16 121/53 97
06/27/23 15:01 06/27/23 20:00 06/27/23 19:30 06/27/23 20:00 06/27/23 19:30
MDM/Problems Addressed
MDM/Problems Addressed:
77-year-old female arrives with toxic metabolic encephalopathy likely on the basis of urosepsis. Head CT shows no acute abnormalities. Right sided upper extremity deficit likely recrudescence of prior stroke symptoms in the setting of acute
illness. Broad-spectrum IV antibiotics initiated particularly cefepime given due to need for Pseudomonas coverage in the setting of recent hospitalization, will admit to the hospitalist service for further management
*Critical Care Note
Total Time (30-74mins, 75-104mins- exclusive of procedures): Not Applicable
ED Attending Note
-
Portions of this chart may have been created with voice recognition software.� Occasional wrong word or��sound alike� substitutions may have occurred due to the inherent limitations of voice recognition software.
Discharge Plan
Departure
Patient Disposition: Admit
Date of Disposition: 06/27/23
Time of Disposition: 18:16
Admit to: Med/Surg
Presentation/result/management discussed w/ accepting MD/DO: Hospitalist
Discharge Problem:
Urinary tract infection, Sepsis, Toxic metabolic encephalopathy
Interventions
Interventions:
*Risk Screen - Suicide Last Done: 06/27/23 15:01
*General Assessment Last Done: 06/27/23 15:01
*Neglect/Abuse Screening Last Done: 06/27/23 15:01
ED- Fall Risk Assessment Last Done: 06/27/23 17:03
*ED COVID-19 Vaccine History Last Done: 06/27/23 15:01
ED- Pulmonary Assessment Last Done: 06/27/23 15:11
ED- Neurological Assessment Last Done: 06/27/23 15:01
ED Swallowing Screen Last Done: 06/27/23 17:03
[2023-06-27 16:31] LABS: Urine Albumin Trace (Neg - Trace); Urine Bilirubin Negative (Negative); Urine Character Slightly Cloudy (Clear); Urine Color Yellow; Urine Glucose Negative (Negative); Urine Ketone Negative (Negative); Urine Leukocyte 2+ (Negative); Urine Nitrite Negative (Negative); Urine Occult Blood 1+ (Negative); Urine Urobilinogen Negative (Neg - 1+)
[2023-06-27 16:31] LABS: Venous Blood Gas B.E. 7.3 mmol/L (-4 to +4); Venous Blood Gas HCO3 35.1 mmol/L (22-27); Venous Blood Gas O2 Sat % 70.9 %; Venous Blood Gas pCO2 65 mmHg (35-48); Venous Blood Gas pH 7.34 (7.32-7.43); Venous Blood Gas pO2 45 mmHg (30-50)
[2023-06-27 16:44] LABS: ALT (SGPT) 12 U/L (0-35); AST (SGOT) 22 U/L (14-36); Albumin 2.8 g/dl (3.5-5.0); Alkaline Phosphatase 80 U/L (38-126); Blood Urea Nitrogen 35 mg/dl (7-17); Carbon Dioxide 35 mmol/L (22-30); Chloride 94 mmol/L (98-107); Estimated Creatinine Clearance 46 ml/min; Glucose 96 mg/dl (70-99); Sodium 134 mmol/L (135-145); Total Bilirubin 0.8 mg/dl (0.2-1.3); Total Protein 5.8 g/dl (6.3-8.2); eGFR > 60.00
[2023-06-27 16:45] LABS: Lactic Acid 1.5 mmol/L (0.7-2.0)
[2023-06-27 16:49] LABS: Alcohol None Detected
[2023-06-27 16:56] LABS: Urine Bacteria Many (Negative); Urine Squamous Cell 0-2 /LPF (Few); Urine White Cell >100 /HPF (0-5)
[2023-06-27 17:01] LABS: Osmolality Serum 294 mOsm/kg (275-300)
[2023-06-27] MEDS: MAXIPIME 1000 MG IV (17:08)
[2023-06-27] MEDS: NSS 1000 IV (18:21)
--- NOTE | 2023-06-27 18:31 | HPS.HSE ---
Addendum entered and electronically signed by Nickolas Smith MD 06/27/23 18:51:
I saw and examined the patient.
The MEDICAL HOUSEKEEPER or PA's note was reviewed and I agree with the note.
Comment: 77-year-old female with past medical history of anxiety, chronic ambulatory dysfunction, recent fracture, essential thrombocytosis, pancytopenia, CVA came to the hospital with change in mental status and lethargy along with dysuria. UA
consistent with UTI. Cefepime given in the ED. Continue cefepime. Check bladder scan. Spoke with daughter and DNR confirmed. Patient has refused hospice in the past per daughter. Patient is currently still smoking. Denies any chest pain at
this time. CT scan ordered by ED. check urine culture, blood cx
General: Well Developed, Well Nourished and No Apparent Distress,lethargic
HEENT: NormoCephalic, Moist mucous membranes and Atraumatic
Respiratory: Clear
Cardiac: S1/S2 and Regular Rhythm; No Murmur or Rub
GI: Soft, Non Tender, Non Distended and Normal Bowel Sounds; No Organomegaly
Rectal: Deferred by Provider
Musculoskeletal: left knee immobilizer
Skin: No Rash
Neuro: Nonfocal/grossly intact
I spent a total of 77 minutes with the patient or on the floor. More than 50% of this time involved counseling and coordination of care.
Original Note:
Family Physician
-
Family Physician:
Chief Complaint
-
Increased lethargy, garbled speech, dysuria x 4 days
History of Present Illness
77-year-old female from home where she lives with her for dysuria x 4 days along with increased lethargy, garbled speech. She has history of a tibial plateau fracture is getting home PT is nonweightbearing on that leg reportedly is
wheelchair bound from prior stroke has chronic contracture of right hand with wrist drop and limited movement of lower legs.
[facility] left tibial plateau fracture current knee immobilizer on 05/24/23 chronic ambulatory dysfunction wheelchair-bound chronic hyponatremia, Scherer's esophagus, peptic ulcer disease, GI bleed, history of CVA x 3, essential thrombocytosis, nicotine
abuse, HLD, anxiety,
Medical History
Past Medical History
Past Medical History: Reports Other (chronic ambulatory dysfunction wheelchair-bound, peptic ulcer disease, blood loss anemia, essential thrombocytosis, pancytopenia, CVA, hyponatremia, tobacco use, benzodiazepine dependence)
Additional Past Medical History:
Tibial plateau fracture May 2023
Past Surgical History: Reports Other (Right shoulder surgery)
Social History
Tobacco: Smoker
Alcohol: Occasional
Drug: None
Personal:
Living: With Family
Employment: Retired
Family History
Family History: Other (Mother age 59 unsure, father [place] unsure what age)
Allergies / Home Medications
Allergies reflects when Allergies were last updated in [facility].
Home Medications with original date entered in [facility]
Allergy/Medication List:
Allergies
Allergy/AdvReac Type Severity Reaction Status Date / Time
No Known Allergies Allergy Verified 05/08/23 14:46
Home Medications
aspirin 81 mg tablet,delayed release 81 mg PO DAILY Blood clot prevention/tx 02/19/21
atorvastatin 40 mg tablet 40 mg PO HS High cholesterol 02/19/21
clonazepam 1 mg tablet 1 mg PO HS Mental Health/Anxiety 05/08/23
temazepam 30 mg capsule 30 mg PO HS Sleep 05/08/23
cholecalciferol (vitamin D3) 25 mcg (1,000 unit) tablet (Vitamin D3) 25 mcg PO DAILY Supplement 05/19/23
cyanocobalamin (vitamin B-12) 1,000 mcg tablet (Vitamin B-12) 1,000 mcg PO DAILY Supplement 05/19/23
acetaminophen 325 mg tablet 650 mg PO Q4HPRN PRN mild pain/RODAS #1 tab 06/17/23
Review of Systems
-
History Source: Patient
A 12 point ROS was completed and negative except as noted: Yes
Constitutional: Reports Fatigue; Denies Fever or Chills
EENT: Reports Other (Garbled speech with ill fitting dentures falling out of mouth); Denies Sore Throat or Mouth Swelling
Respiratory: Denies Cough or Trouble Breathing
Cardiac: Denies Chest Pain, Diaphoresis, Palpitations or Syncope
Abdomen/GI: Denies Abdominal Pain, Nausea, Vomiting, Diarrhea, Constipated, Bloody Stools or Black Stools
: Reports Dysuria; Denies Frequency, Flank Pain, Incontinence or Difficulty Voiding
Musculoskeletal: Reports Joint Pain (Chronic left knee with knee immobilizer in place); Denies Joint Swelling or Edema
Skin: Denies Itching or Rash
Neurological: Reports Headache and Weakness; Denies Dizzy
Endocrine: Reports No Symptoms
Hematologic/Lymphatic: Reports No Symptoms
Psych: Reports Calm
Physical Exam
Vital Signs
Vital Signs
Temp Pulse Resp BP Pulse Ox
97.8 F 81 14 129/57 97
06/27/23 15:01 06/27/23 18:01 06/27/23 18:01 06/27/23 18:01 06/27/23 18:01
Physical Exam
General: Other (Lethargic with garbled speech likely secondary to sepsis UTI and ill fitting dentures falling out of mouth)
HEENT: NormoCephalic, Anicteric, PERRLA, Grace Conjunctivae and Other ( ill fitting dentures falling out of mouth)
Respiratory: Clear; No Wheezes, Rales or Rhonchi
Cardiac: S1/S2 and Regular Rhythm; No Murmur, Rub, Gallop or Peripheral Edema
Breast: Deferred by me
GI: Soft, Non Tender, Non Distended, Normal Bowel Sounds and No Hepatosplenomegaly
Rectal: Deferred by Provider
Genito-urinary: Deferred by me
Musculoskeletal: No Clubbing, No Cyanosis, Edema, Left Upper Extremity, No Edema and Other (Left knee immobilizer in place, chronic right wrist drop from prior stroke)
Skin: Warm and Dry; No Rash
Neuro: AO x 3 (But with garbled speech secondary to ill fitting dentures and UTI), No Sensory Deficits and Slurred Speech; No Facial Droop or Tremors
Psych: Calm
Laboratory Results
-
06/27/23 15:22
06/27/23 16:17
Laboratory Results
Lactic Acid 1.5 mmol/L (0.7-2.0) 06/27/23 16:17
Total Bilirubin 0.8 mg/dl (0.2-1.3) 06/27/23 16:17
Total Bilirubin Cancelled 06/27/23 16:17
AST 22 U/L (14-36) 06/27/23 16:17
AST Cancelled 06/27/23 16:17
ALT 12 U/L (0-35) 06/27/23 16:17
ALT Cancelled 06/27/23 16:17
Alkaline Phosphatase 80 U/L (38-126) 06/27/23 16:17
Alkaline Phosphatase Cancelled 06/27/23 16:17
Data Reviewed
-
CT Scan: Report Reviewed by me
Lab Data: Labs Reviewed by me
Impression/Plan
-
Impression/plan:
Admit to MedSurg
#Sepsis 2/2 UTI
#Dysuria x 4 days, 97.8 F, 129/57
WBC 20.7
-Follow urine culture, blood cultures x 2
-IV cefepime
CT head: No acute intracranial abnormality
Stable old left parietal lobe infarct with moderate atrophy
#Garbled speech secondary to sepsis UTI concern for dysphagia plus ill fitting upper and lower dentures
-N.p.o. except meds
-Consult speech
#CVA x 3
Hx old left parietal lobe infarct on CT
-Continue aspirin, statin
#Tibial plateau fracture 05/20/2023
#Chronic ambulatory dysfunction�wheelchair-bound
Left knee immobilizer in place
-Ortho had recommended nonweightbearing
-Patient receives home PT but is reportedly wheelchair-bound
-PT/OT/caseworker protective services consult
#Essential thrombocytosis
Was previously on hydroxyurea taken off since recent blood transfusion
PLT 665
#Scherer's esophagus
#Peptic ulcer disease
#Upper GI bleed Hx
-Hgb stable
-Add IV PPI
#Chronic hyponatremia
NA 134
-Follow BMP
#HLD
-Continue atorvastatin 40 mg at bedtime
#Anxiety/depression
-Continue clonazepam 1 mg at bedtime will hold for sedation
#Insomnia
-HOLD temazepam 30 mg at bedtime
#Active smoker
1/2 pack a day smoker x 57 years
-Cessation advised
#Hx history chronic back and neck pain
Blind left eye
#Cachexia from malnutrition, BMI 15.3 EKG
DVT prophylaxis
Subcu Lovenox
DNR
[2023-06-28] VITALS (13 sets, daily range): BP systolic 105–146; BP diastolic 44–68; PULSE 82; O2SAT 99; BMI 15.5
[2023-06-28] MEDS: LIPITOR PO (00:49)
[2023-06-28] MEDS: KLONOPIN PO (00:49)
[2023-06-28] MEDS: NSS 1000 IV ×2 (00:52→17:01)
[2023-06-28] MEDS: MAXIPIME 1000 MG IV ×3 (02:16→17:03)
[2023-06-28] MEDS: STERILE WATER FOR INJECTION 10 ML IV ×3 (02:17→17:03)
[2023-06-28 06:51] LABS: % Basophils 0.6 % (0-2); % Eosinophils 5.2 % (0-6); % Immature Granulocytes 0.6 % (0-0.5); % Lymphocytes 14.4 % (20.5-51.1); % Monocytes 8.1 % (1.7-9.3); % Neutrophils 71.1 % (42.2-75.2); Absolute Basophils 0.1 10^3/uL (0-0.2); Absolute Eosinophils 0.7 10^3/uL (0-0.7); Absolute Immature Granulocytes 0.1 10^3/uL (0-0.05); Absolute Lymphocytes 1.8 10^3/uL (1.2-3.4); Absolute Neutrophils 8.9 10^3/uL (1.4-6.5); Hematocrit 32.2 % (37.0-47.0); Hemoglobin 10.5 g/dL (12.0-16.0); Mean Corp Hgb Conc. 32.6 g/dL (33.0-37.0); Mean Corpuscular Hgb 33.1 pg (27.0-31.0); Mean Corpuscular Volume 101.6 fL (81.0-99.0); Mean Platelet Volume 10.4 fL (7.4-10.4); Nucleated Red Blood Cells % 0 %; Platelet Count 502 10^3/uL (130-400); Red Blood Cell Count 3.17 10^6/uL (4.20-5.40); Red Cell Dist. Width 18.5 % (11.5-14.5); White Blood Cell Count 12.6 10^3/uL (4.8-10.8)
[2023-06-28 07:17] LABS: ALT (SGPT) < 10 U/L (0-35); AST (SGOT) 19 U/L (14-36); Albumin 2.5 g/dl (3.5-5.0); Alkaline Phosphatase 78 U/L (38-126); Blood Urea Nitrogen 26 mg/dl (7-17); Calcium 8.3 mg/dl (8.4-10.2); Carbon Dioxide 30 mmol/L (22-30); Chloride 102 mmol/L (98-107); Estimated Creatinine Clearance 54 ml/min; Glucose 80 mg/dl (70-99); Potassium 3.7 mmol/L (3.5-5.1); Sodium 138 mmol/L (135-145); Total Bilirubin 0.7 mg/dl (0.2-1.3); Total Protein 5.4 g/dl (6.3-8.2); eGFR > 60.00
[2023-06-28] MEDS: MIRALAX PO (10:33)
[2023-06-28] MEDS: VITAMIN B-12 1000 MCG PO (10:33)
[2023-06-28] MEDS: COLACE 100 MG PO ×2 (10:33→19:40)
[2023-06-28] MEDS: VITAMIN D3 (cholecalciferol) 25 MCG PO (10:33)
[2023-06-28] MEDS: ASPIR LOW (ENTERIC COATED) 81 MG PO (10:33)
--- NOTE | 2023-06-28 11:36 | W.PN.HOSP.TC ---
Today's Communication/Plan
-
monitor vitals
see plan
NPO for now until evaluated by GI
start PPI
cw abx
follow urine and blood cx
Assessment / Plan
Assessment / Plan
General: Well Developed, Well Nourished and No Apparent Distress,lethargic
HEENT: NormoCephalic, Moist mucous membranes and Atraumatic
Respiratory: Clear
Cardiac: S1/S2 and Regular Rhythm; No Murmur or Rub
GI: Soft, Non Tender, Non Distended and Normal Bowel Sounds; No Organomegaly
Rectal: Deferred by Provider
Musculoskeletal: left knee immobilizer
Skin: No Rash
Neuro: Nonfocal/grossly intact
Sepsis 2/2 UTI
Suspect TME secondary to above, continue to monitor
-Follow urine culture, blood cultures
-IV cefepime
� � ��CT head:�No acute intracranial abnormality
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
#Garbled speech likely secondary to sepsis UTI concern for dysphagia plus ill fitting upper and lower dentures
-N.p.o. except meds
-speech consulted; ok for soft and bite size; will await GI to see first
CT noted with esophageal wall thickening consistent with esophagitis. Patient has history of esophagitis. History of Scherer's esophagus however was not on PPI on admission. Started on PPI
#CVA x 3
Hx old left parietal lobe infarct on CT
-Continue aspirin, statin
#Tibial plateau fracture 05/20/2023
#Chronic ambulatory dysfunction�wheelchair-bound
Left knee immobilizer in place
-Ortho had recommended nonweightbearing
-Patient receives home PT but is reportedly wheelchair-bound
-PT/OT following
#Essential thrombocytosis
Was previously on hydroxyurea taken off since recent blood transfusion\\
#Scherer's esophagus
#Peptic ulcer disease
#Upper GI bleed Hx
-Hgb stable
-Add IV PPI
#Chronic hyponatremia
monitor
#HLD
statin
#Anxiety/depression
-Continue clonazepam 1 mg at bedtime will hold for sedation
#Insomnia
-HOLD� temazepam 30 mg at bedtime
#Active smoker
1/2 pack a day smoker x 57 years
-Cessation advised
#Hx history chronic back and neck pain
Blind left eye
#Cachexia from malnutrition, BMI 15.3 EKG
DVT prophylaxis
Subcu Lovenox
DNR
I spent a total of 53 minutes with the patient or on the floor. More than 50% of this time involved counseling and coordination of care.
Anticipated Discharge: > 48 hours
Subjective/Interval History
-
Date of Service: June 28, 2023
denies nausea
Objective Data
-
Labs:
Laboratory Results
06/28/23
06:32
WBC 12.6 H
Hgb 10.5 L
Hct 32.2 L
Plt Count 502 H D
Sodium 138
Potassium 3.7
Chloride 102
Carbon Dioxide 30
BUN 26 H
Creatinine 0.6
Glucose 80
Calcium 8.3 L
Total Bilirubin 0.7
AST 19
ALT < 10
Alkaline Phosphatase 78
Vital Signs:
Vital Signs
Temp Pulse Resp BP Pulse Ox
97.8 F 86 20 142/67 99
06/28/23 08:56 06/28/23 08:56 06/28/23 08:56 06/28/23 08:56 06/28/23 08:56
--- NOTE | 2023-06-28 11:40 | PTCARENOTE ---
Patient arrived to unit from ED and pulled over to bed. AAOx2. Patient is speaking in a very low voice stating 'I lost my voice.' Oriented to room. Updated daughter. Call valdes within reach.
--- NOTE | 2023-06-28 11:44 | PTOTSP ---
Dysphagia Evaluation
Patient presents with signs concerning for mild oral stage differences (i.e., slow chewing, slow A-P transfers). She had multiple swallows and c/o burning in chest when swallowing all consistencies - concerning for possible signs of
pharyngoesophageal dysphagia. No overt signs of aspiration observed. Per chart review, CT of Abdomen/Pelvis this admission is concerning for esophagitis and patient has a history of Scherer's esophagus.
Recommend:
1. IDDSI Level 6 (Soft and Bite Sized), IDDSI Level 0 (Thin Liquids)
2. Medications - as best tolerated
3. Supervision and assistance with feeding
4. Strategies: upright to 90 degrees, liquid wash with solids to assist with oral clearance, reflux precautions including elevated head of bed for at least 30 minutes after PO intake
5. Oral care at least 3x daily
6. Dysphagia therapy at the acute care level for education in compensations and to determine if/when patient is appropriate for solid advancement.
[2023-06-28] MEDS: DUONEB 3 ML INH (11:59)
[2023-06-28] MEDS: NSS (PRESERVATIVE FREE) 10 ML IV ×2 (12:50→19:40)
[2023-06-28] MEDS: PROTONIX IV 40 MG IV ×2 (12:50→19:40)
--- NOTE | 2023-06-28 13:12 | CON.GI ---
Addendum entered and electronically signed by Araceli Santiago MD 06/28/23 17:46:
I saw and examined the patient.
The TEST LEAD's note was reviewed and I agree with the note.
Comment: This is a 77-year-old female who was admitted for altered mental status and is being treated for possible urosepsis. We were consulted for an abnormal CAT scan showing possible distal esophageal thickening and also gastric antral
thickening on CT she did have a recent endoscopy on 05/09/2023 as described below she did have evidence of gastritis with gastric ulcers biopsies were negative for H. pylori, salmon-colored mucosa biopsies positive for Goyal's with intestinal
metaplasia negative for dysplasia, and GE junction nodule which was benign. She currently has symptoms of odynophagia also and has been evaluated by speech and cleared for dysphagia diet with thin liquids. esophageal and gastric wall thickening
noted on CT most likely from probable pill esophagitis or reflux esophagitis as described above on recent endoscopy she did have evidence of short segment Goyal's esophagus and also gastric ulcers. Will increase her PPI to twice daily unclear if
she had been consistently taking it prior to admission. Will also add Carafate suspension. Will need repeat endoscopy which can be performed as outpatient along with colonoscopy. She has never had a colonoscopy in the past. Currently has no signs
of GI bleed hemoglobin stable .Chronic thrombocytosis was recently taken off hydroxyurea but now has recurrent thrombocytosis and may need to be restarted on it.
Original Note:
Consultation
-
Date/Time Consultation Requested: 06/28/23 1130
Date/Time Consultation Performed: 06/28/23 1315
Requesting Provider: Jovany Smith MD
Performing Provider: SHAUNA Cain, Araceli Santiago MD
Reason for Consultation: abnormal CT
Medical History
Chief Complaint / HPI
History of Present Illness:
Pt is a 77yo presents with hx ambulatory dysfunction with tibial plateau fracture in 05/2023, anemia, anxiety, thrombocytosis on prior hydroxyurea(following with Dr. Cook), pancytopenia, CVA, tobacco abuse present to hospital with change in mental
status with lethargy with concern or UTI. She was seen by GI back in May with hbg 3.4. She was noted with wt loss and decreased appetite. She completed EGD 05/09/23 with � - [place]-colored mucosa suggestive of Goyal's esophagus, nodular
mucosal in esophagus, non bleeding gastric ulcers and erythema. bx with neg goyal's, neg H pylori. She was recommended PPI BID and repeat EGD in 2 months to assess for healing with NSAID avoidance. In addition to anemia she also noted drop in
platelets during that admission and hydroxyurea for thrombocytosis was held. She was discharged home and returned 05/20 with tibial plateau fracture with non operative management. She now returns with change in mental status and coffee ground
emesis there was some concern for distal esophageal wall thickening and esophagitis with questionable gastric wall thickening on Ct and asked to evaluate. hbg 12.5 on return 06/27.
At this time she complains of odynophagia with burning with eating. Prior to ER she was noted with vomiting. She otherwise denies dysphagia, GERD, abdominal pain, diarrhea, constipation or rectal bleeding.
.
Past Medical History
Past Medical History: CVA (x3) and Other (ambulatory dysfunction, PUD, anemia requiring transfusion, thrombocytosis, pancytopenia, CVA, hyponatremia, tobacco abuse, benzo dependency, sleep apnea, tibial plateau fracture 05/2023, right shoulder
surgery)
Social History
Tobacco: Smoker
Alcohol: None
Drug: Marijuana (in past)
Personal:
Living: With Family
Employment: Retired
Family History
Family History: Other (no family hx colon CA or polyps)
Allergies / Home Medications
Allergy/AdvReac Type Severity Reaction Status Date / Time
No Known Allergies Allergy Verified 05/08/23 14:46
Medication Instructions Recorded
aspirin 81 mg tablet,delayed 81 mg PO DAILY Blood clot 02/19/21
release prevention/tx
atorvastatin 40 mg tablet 40 mg PO HS High cholesterol 02/19/21
clonazepam 1 mg tablet 1 mg PO HS Mental Health/Anxiety 05/08/23
temazepam 30 mg capsule 30 mg PO HS Sleep 05/08/23
cholecalciferol (vitamin D3) 25 25 mcg PO DAILY Supplement 05/19/23
mcg (1,000 unit) tablet (Vitamin
D3)
cyanocobalamin (vitamin B-12) 1,000 mcg PO DAILY Supplement 05/19/23
1,000 mcg tablet (Vitamin B-12)
acetaminophen 325 mg tablet 650 mg PO Q4HPRN PRN mild pain/RODAS 06/17/23
#1 tab
Review of Systems
-
History Source: Patient
Constitutional: Reports Weight Loss, Fatigue and Other (decreased appetite )
EENT: Reports No Symptoms
Respiratory: Reports No Symptoms
Cardiac: Reports No Symptoms
Abdomen/GI: Reports Nausea, Vomiting and Constipated
: Reports No Symptoms
Musculoskeletal: Reports Other (weakness with recent fall)
Neurological: Reports Weakness
Endocrine: Reports No Symptoms
Hematologic/Lymphatic: Reports No Symptoms
Vital Signs
Temp Pulse Resp BP Pulse Ox
97.8 F 81 16 142/67 93
06/28/23 08:56 06/28/23 12:00 06/28/23 12:00 06/28/23 08:56 06/28/23 12:00
Physical Exam
Exam
General: Other (thin appearing, pale )
HEENT: Normocephalic and Anicteric
Respiratory: Clear
Cardiac: Regular Rhythm
GI: Soft, Non Tender and Non Distended
Musculoskeletal: No Clubbing and No Cyanosis
Skin: Warm and Dry
Neuro: Awake, Alert and Other (forgetful to some history )
Psych: Calm
Results
WBC 12.6 10^3/uL (4.8-10.8) H 06/28/23 06:32
Hgb 10.5 g/dL (12.0-16.0) L 06/28/23 06:32
Hct 32.2 % (37.0-47.0) L 06/28/23 06:32
MCV 101.6 fL (81.0-99.0) H 06/28/23 06:32
Plt Count 502 10^3/uL (130-400) H D 06/28/23 06:32
Absolute Neuts (auto) 8.9 10^3/uL (1.4-6.5) H 06/28/23 06:32
Sodium 138 mmol/L (135-145) 06/28/23 06:32
Potassium 3.7 mmol/L (3.5-5.1) 06/28/23 06:32
Chloride 102 mmol/L (98-107) 06/28/23 06:32
Carbon Dioxide 30 mmol/L (22-30) 06/28/23 06:32
BUN 26 mg/dl (7-17) H 06/28/23 06:32
Creatinine 0.6 mg/dL (0.6-1.0) 06/28/23 06:32
Calcium 8.3 mg/dl (8.4-10.2) L 06/28/23 06:32
Total Bilirubin 0.7 mg/dl (0.2-1.3) 06/28/23 06:32
AST 19 U/L (14-36) 06/28/23 06:32
ALT < 10 U/L (0-35) 06/28/23 06:32
Alkaline Phosphatase 78 U/L (38-126) 06/28/23 06:32
Diagnostic Image Results:
06/27/23 CT Abd/pel Without Iv Or Oral
No definitive acute pathology of the abdomen or pelvis identified.
Circumferential distal esophageal wall thickening. This can be seen with esophagitis. A mural mass cannot be excluded.
Questionable gastric wall thickening of the antrum. Limited evaluation without oral contrast.
Small hiatal hernia.
Gallstones.
Bilateral nonobstructing renal stones.
Moderate fecal material throughout the colon.
Myomatous uterus.
Compression fractures. These are indeterminate.
Prior GI Procedures:
EGD: 05/09/23 jarquin
�� - [place]-colored mucosa suggestive of Goyal's
�� � � � � � � � � � � esophagus. Biopsied.
�� � � � � � � � � � � - Mucosal nodule found in the esophagus. Biopsied.
�� � � � � � � � � � � - Non-bleeding gastric ulcers with no stigmata of
�� � � � � � � � � � � bleeding. Biopsied.
�� � � � � � � � � � � - Erythematous mucosa in the gastric body. Biopsied.
�� � � � � � � � � � � - Normal examined duodenum.
Colonoscopy: none
Assessment / Plan
-
Pt is a 77yo presents with hx ambulatory dysfunction with recent tibial plateau fracture in 05/2023, anemia, anxiety, thrombocytosis on prior hydroxyurea(following with Dr. Cook), pancytopenia, CVA, tobacco abuse present to hospital with change in
mental status with lethargy with concern or UTI. She was seen by GI back in May with hbg 3.4. She was noted with wt loss and decreased appetite. She completed EGD 05/09/23 with � - [place]-colored mucosa suggestive of Goyal's esophagus,
nodular mucosal in esophagus, non bleeding gastric ulcers and erythema. bx with neg goyal's, neg H pylori. She was recommended PPI BID and repeat EGD in 2 months to assess for healing with NSAID avoidance. In addition to anemia she also noted
drop in platelets during that admission and hydroxyurea for thrombocytosis was held. She was discharged home and returned 05/20 with tibial plateau fracture with non operative management. She now returns with change in mental status and coffee
ground emesis there was some concern for distal esophageal wall thickening and esophagitis with questionable gastric wall thickening on Ct and asked to evaluate. hbg 12.5 on return 06/27.
-odynophagia
-recent anemia and EGD with nodular esophagus, non bleeding gastric ulcer and erythema
-abnormal CT with distal esophageal thickening and esophagitis and gastric wall thickening
-TME with UTI
-recent anemia-- macrocytic requiring transfusion
-hx chronic thrombocytosis currently off chronic hydroxyurea due to thrombocytopenia on prior admission
-prior elevated LFT's now normalized
other medical problems:
-CVA
-HTN
sleep apnea
-anxiety
tobacco abuse
PLAN:
Etiology of odynophagia with esophageal thickening related to esophagitis less likely malignancy as recent EGD completed in May with no mass found but PUD
cont PPI daily
NSAID avoidance
hbg remains stable cont to trend
will review with Dr. Santiago for EGD -- Pt was due 07/07(2 month follow up) for repeat EGD but has had no follow up completed as had recurrent admission with fracture vs cosnider OP when improved from UTI
cont bowel regiment with colace and miralax with moderate stool on CT
cont rx for UTI per hospitalist remain on abx
? need to resume Hydroxyurea as now platelets elevated
ok for IDDSI 6 diet with thin liquid per speech recommendation with supervision, 90 degree upright, oral care 3 x /day,
will follow
-
-
Thank you for consultation and allowing me to participate in the patient's care. Please call the traction power engineer GI physician during the after hours with any questions or concerns.
[2023-06-28] MEDS: LOVENOX 40 MG SC (17:06)
[2023-06-28] MEDS: LIPITOR 40 MG PO (21:47)
[2023-06-28] MEDS: KLONOPIN 1 MG PO (21:47)
[2023-06-28] MEDS: CARAFATE SUSPENSION 1 GM PO (21:47)
[2023-06-29] MEDS: MAXIPIME 1000 MG IV ×3 (01:51→17:11)
[2023-06-29] MEDS: STERILE WATER FOR INJECTION 10 ML IV ×3 (01:51→17:11)
[2023-06-29 07:00] VITALS: BP 144/60
[2023-06-29 08:02] LABS: % Basophils 0.6 % (0-2); % Eosinophils 5.4 % (0-6); % Immature Granulocytes 0.6 % (0-0.5); % Lymphocytes 12.2 % (20.5-51.1); % Monocytes 7.6 % (1.7-9.3); % Neutrophils 73.6 % (42.2-75.2); Absolute Basophils 0.1 10^3/uL (0-0.2); Absolute Eosinophils 0.6 10^3/uL (0-0.7); Absolute Immature Granulocytes 0.1 10^3/uL (0-0.05); Absolute Lymphocytes 1.2 10^3/uL (1.2-3.4); Absolute Monocytes 0.8 10^3/uL (0.1-0.6); Absolute Neutrophils 7.5 10^3/uL (1.4-6.5); Hematocrit 28.1 % (37.0-47.0); Hemoglobin 9.2 g/dL (12.0-16.0); Mean Corp Hgb Conc. 32.7 g/dL (33.0-37.0); Mean Corpuscular Hgb 33.2 pg (27.0-31.0); Mean Corpuscular Volume 101.4 fL (81.0-99.0); Mean Platelet Volume 10.8 fL (7.4-10.4); Nucleated Red Blood Cells % 0 %; Platelet Count 440 10^3/uL (130-400); Red Blood Cell Count 2.77 10^6/uL (4.20-5.40); White Blood Cell Count 10.1 10^3/uL (4.8-10.8)
[2023-06-29] MEDS: CARAFATE SUSPENSION 1 GM PO ×4 (08:49→21:31)
[2023-06-29] MEDS: MIRALAX 17 GRAMS PO (08:49)
[2023-06-29] MEDS: ASPIR LOW (ENTERIC COATED) 81 MG PO (08:49)
[2023-06-29] MEDS: VITAMIN B-12 1000 MCG PO (08:49)
[2023-06-29] MEDS: COLACE 100 MG PO ×2 (08:50→19:29)
[2023-06-29] MEDS: VITAMIN D3 (cholecalciferol) 25 MCG PO (08:50)
[2023-06-29] MEDS: PROTONIX IV 40 MG IV ×2 (08:50→19:29)
[2023-06-29] MEDS: NSS (PRESERVATIVE FREE) 10 ML IV ×2 (08:50→19:29)
[2023-06-29 10:10] LABS: Blood Urea Nitrogen 16 mg/dl (7-17); Calcium 7.8 mg/dl (8.4-10.2); Carbon Dioxide 26 mmol/L (22-30); Chloride 104 mmol/L (98-107); Estimated Creatinine Clearance 54 ml/min; Glucose 66 mg/dl (70-99); Potassium 3.4 mmol/L (3.5-5.1); Sodium 136 mmol/L (135-145); eGFR > 60.00
--- NOTE | 2023-06-29 10:13 | CM ---
CM following re: d/c planning
Chart reviewed
CM attempted to meet with the patient at bedside however patient was unable to talk stating she had a sore throat
CM spoke with the patient's daughter Ashley via phone and she answered questions asked to complete the IA
Pt resides with her spouse in a ranch style home with 5 or 6 CAN
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
Per the patient's daughter Ashley the patient had VN through [facility], has been to [facility] for rehab, & has a w/c & mauro walker for use as needed
Pt has confirmed prescription coverage and rx's are filled at [facility]
Pt PCP-Dr. Fernando
Per PT/OT evaluations post d/c recommendation is for SNF
The patient's daughter has requested a referral be placed to [facility] again as it was the closest in proximity to the family
CM will continue to follow patient progress and assist with continued needs at d/c as indicated
PLAN; d/c to SNF
--- NOTE | 2023-06-29 10:38 | W.PN.GI.CBS2 ---
Today's Communication / Plan
-
Continue PPI twice daily and Carafate
Continue dysphagia diet as tolerated
Follow-up with GI sent a message to front worker to schedule patient for office visit and also for a family member to accompany her to discuss repeat endoscopy if medically stable then and Cologuard test
Assessment / Plan
-
Pt is a 77yo presents with hx ambulatory dysfunction with recent tibial plateau fracture in 05/2023, anemia, anxiety, thrombocytosis on prior hydroxyurea(following with Dr. Cook), pancytopenia, CVA, tobacco abuse present to hospital with change in
mental status with lethargy with concern or UTI. She was seen by GI back in May with hbg 3.4. She was noted with wt loss and decreased appetite. She completed EGD 05/09/23 with � - [place]-colored mucosa suggestive of Goyal's esophagus,
nodular mucosal in esophagus, non bleeding gastric ulcers and erythema. bx with SS goyal's neg for dysplasia, neg H pylori. She was recommended PPI BID and repeat EGD in 2 months to assess for healing with NSAID avoidance. In addition to anemia
she also noted drop in platelets during that admission and hydroxyurea for thrombocytosis was held. She was discharged home and returned 05/20 with tibial plateau fracture with non operative management. She now returns with change in mental
status and coffee ground emesis there was some concern for distal esophageal wall thickening and esophagitis with questionable gastric wall thickening on Ct and asked to evaluate. hbg 12.5 on return 06/27.
-odynophagia
-recent anemia and EGD with nodular esophagus, non bleeding gastric ulcer and erythema
-abnormal CT with distal esophageal thickening and esophagitis and gastric wall thickening
-TME with UTI
-recent anemia-- macrocytic requiring transfusion
-hx chronic thrombocytosis currently off chronic hydroxyurea due to thrombocytopenia on prior admission
-prior elevated LFT's now normalized
other medical problems:
-CVA
-HTN
sleep apnea
-anxiety
tobacco abuse
PLAN:
Etiology of odynophagia with esophageal thickening related to reflux esophagitis vs pill esophagitis also, less likely malignancy as recent EGD completed in May with no mass found but PUD
cont PPI bid
added Carafate
NSAID avoidance
hbg dropped but no active bleeding noted ? from IVF/dilutional, recent fracture ? AOCD. cont to trend
cont bowel regiment with colace and miralax with moderate stool on CT
cont rx for UTI per hospitalist remain on abx
? need to resume Hydroxyurea as now platelets elevated
ok for IDDSI 6 diet with thin liquid per speech recommendation with supervision, 90 degree upright, oral care 3 x /day,
Will follow-up as outpatient and if medically stable then will schedule her for repeat endoscopy to check for healing of the gastric ulcers and also the esophagitis, also has short segment Goyal's esophagus noted on recent endoscopy with biopsies.
She may not be able to tolerate bowel prep for colonoscopy but could consider Cologuard as outpatient since she has never had any colon cancer screening
will s/o and will be available as needed
Subjective
Subjective
Date of Service: June 29, 2023
Tolerating dysphagia diet still with minimal symptoms of odynophagia and epigastric pain
Objective
Data Reviewed
Laboratory Data:
Laboratory Results
06/29/23 07:21
06/29/23 07:21
Laboratory Results
Total Bilirubin 0.7 mg/dl (0.2-1.3) 06/28/23 06:32
AST 19 U/L (14-36) 06/28/23 06:32
ALT < 10 U/L (0-35) 06/28/23 06:32
Alkaline Phosphatase 78 U/L (38-126) 06/28/23 06:32
Vital Signs and I&O:
Vital Signs
Temp Pulse Resp BP Pulse Ox
97.5 F 86 18 144/60 97
06/29/23 07:00 06/29/23 07:00 06/29/23 07:00 06/29/23 07:00 06/29/23 07:00
I&O
06/28/23 06/29/23 06/30/23
06:59 06:59 06:59
Intake Total 0 / 0
Balance 0 / 0
Physical Exam
Physical Exam
Cardiology: Normal Sinus Rhythm
Pulmonary: Clear
GI: Soft, Non Distended, Tender (mild epigastric tenderness) and Normal Bowel Sounds
--- NOTE | 2023-06-29 11:57 | W.PN.HOSP.TC ---
Addendum entered and electronically signed by Nickolas Smith MD 06/29/23 15:40:
Updated daughter over the phone
Original Note:
Today's Communication/Plan
-
Monitor vital signs and see plan
Continue with PPI
Follow urine culture
Continue antibiotics
PT/OT
Assessment / Plan
Assessment / Plan
General: Well Developed, Well Nourished and No Apparent Distress,lethargic
HEENT: NormoCephalic, Moist mucous membranes and Atraumatic
Respiratory: Clear
Cardiac: S1/S2 and Regular Rhythm; No Murmur or Rub
GI: Soft, Non Tender, Non Distended and Normal Bowel Sounds; No Organomegaly
Rectal: Deferred by Provider
Musculoskeletal: left knee immobilizer
Skin: No Rash
Neuro: Nonfocal/grossly intact
Sepsis 2/2 UTI
Suspect TME secondary to above, continue to monitor
-Follow urine culture with gram-negative bacilli, blood cultures NGTD
-IV cefepime
� � ��CT head:�No acute intracranial abnormality
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
#Garbled speech likely secondary to sepsis UTI concern for dysphagia plus ill fitting upper and lower dentures
-now on dysphagia diet
-speech consulted; ok for soft and bite size
CT noted with esophageal wall thickening consistent with esophagitis. Patient has history of esophagitis. History of Scherer's esophagus however was not on PPI on admission. Started on PPI, inc to BID, added carafate. GI following. Will
follow-up patient for possible endoscopy
#CVA x 3
Hx old left parietal lobe infarct on CT
-Continue aspirin, statin
#Tibial plateau fracture 05/20/2023
#Chronic ambulatory dysfunction�wheelchair-bound
Left knee immobilizer in place
-Ortho had recommended nonweightbearing
-Patient receives home PT but is reportedly wheelchair-bound
-PT/OT following
#Essential thrombocytosis
Was previously on hydroxyurea taken off since recent blood transfusion
Spoke with Dr. Skelton from hematology, he does not think patient should be restarted on hydroxyurea at this time. Instructed patient to follow-up with her outpatient wire drawing machine operator
#Scherer's esophagus
#Peptic ulcer disease
#Upper GI bleed Hx
-Hgb stable
-Add IV PPI
Constipation
laxatives
Hypokalemia
replete
Mild anemia, likely anemia of chronic disease
Monitor
#Chronic hyponatremia
monitor
#HLD
statin
#Anxiety/depression
-Continue clonazepam 1 mg at bedtime will hold for sedation
#Insomnia
-HOLD� temazepam 30 mg at bedtime
#Active smoker
1/2 pack a day smoker x 57 years
-Cessation advised
#Hx history chronic back and neck pain
Blind left eye
#Cachexia from malnutrition, BMI 15.3 EKG
DVT prophylaxis
Subcu Lovenox
DNR
I spent a total of 52 minutes with the patient or on the floor. More than 50% of this time involved counseling and coordination of care.
Anticipated Discharge: 24 - 48 hours
Subjective/Interval History
-
Date of Service: June 29, 2023
denies pain
Objective Data
-
Labs:
Laboratory Results
06/29/23
07:21
WBC 10.1
Hgb 9.2 L
Hct 28.1 L
Plt Count 440 H
Sodium 136
Potassium 3.4 L
Chloride 104
Carbon Dioxide 26
BUN 16
Creatinine 0.5 L
Glucose 66 L
Calcium 7.8 L
Vital Signs:
Vital Signs
Temp Pulse Resp BP Pulse Ox
97.5 F 86 18 144/60 97
06/29/23 07:00 06/29/23 07:00 06/29/23 07:00 06/29/23 07:00 06/29/23 07:00
I&O
06/28/23 06/29/23 06/30/23
06:59 06:59 06:59
Intake Total 0 / 0
Balance 0 / 0
[2023-06-29] MEDS: KCL 20 MEQ PO (12:32)
[2023-06-29 15:00] VITALS: BP 136/65
[2023-06-29] MEDS: LOVENOX 40 MG SC (17:10)
[2023-06-29] MEDS: FLUSH (NSS) 2 FLUSH IV (17:11)
[2023-06-29] MEDS: LIPITOR 40 MG PO (21:31)
[2023-06-29] MEDS: KLONOPIN 1 MG PO (21:33)
[2023-06-29 23:55] VITALS: BP 128/55
[2023-06-30] MEDS: MAXIPIME 1000 MG IV ×3 (01:05→17:57)
[2023-06-30] MEDS: STERILE WATER FOR INJECTION 10 ML IV ×3 (01:05→17:57)
[2023-06-30 07:00] VITALS: BP 115/63
[2023-06-30 07:34] LABS: % Basophils 0.3 % (0-2); % Eosinophils 6.3 % (0-6); % Immature Granulocytes 0.9 % (0-0.5); % Lymphocytes 15.4 % (20.5-51.1); % Monocytes 8.4 % (1.7-9.3); % Neutrophils 68.7 % (42.2-75.2); Absolute Eosinophils 0.6 10^3/uL (0-0.7); Absolute Immature Granulocytes 0.1 10^3/uL (0-0.05); Absolute Lymphocytes 1.4 10^3/uL (1.2-3.4); Absolute Monocytes 0.8 10^3/uL (0.1-0.6); Absolute Neutrophils 6.2 10^3/uL (1.4-6.5); Hematocrit 28.4 % (37.0-47.0); Hemoglobin 9.4 g/dL (12.0-16.0); Mean Corp Hgb Conc. 33.1 g/dL (33.0-37.0); Mean Corpuscular Hgb 33.3 pg (27.0-31.0); Mean Corpuscular Volume 100.7 fL (81.0-99.0); Mean Platelet Volume 10.9 fL (7.4-10.4); Nucleated Red Blood Cells % 0 %; Platelet Count 482 10^3/uL (130-400); Red Blood Cell Count 2.82 10^6/uL (4.20-5.40); Red Cell Dist. Width 18.2 % (11.5-14.5)
[2023-06-30 08:24] LABS: Blood Urea Nitrogen 9 mg/dl (7-17); Calcium 7.7 mg/dl (8.4-10.2); Carbon Dioxide 28 mmol/L (22-30); Chloride 106 mmol/L (98-107); Estimated Creatinine Clearance 54 ml/min; Glucose 83 mg/dl (70-99); Potassium 3.4 mmol/L (3.5-5.1); Sodium 133 mmol/L (135-145); eGFR > 60.00
[2023-06-30] MEDS: CARAFATE SUSPENSION 1 GM PO ×4 (08:34→21:27)
[2023-06-30] MEDS: VITAMIN B-12 1000 MCG PO (08:35)
[2023-06-30] MEDS: PROTONIX IV 40 MG IV ×2 (08:35→21:27)
[2023-06-30] MEDS: ASPIR LOW (ENTERIC COATED) 81 MG PO (08:35)
[2023-06-30] MEDS: VITAMIN D3 (cholecalciferol) 25 MCG PO (08:35)
[2023-06-30] MEDS: MIRALAX 17 GRAMS PO (08:35)
[2023-06-30] MEDS: NSS (PRESERVATIVE FREE) 10 ML IV ×2 (08:35→21:27)
[2023-06-30] MEDS: COLACE 100 MG PO ×2 (08:35→21:27)
[2023-06-30] MEDS: FLUSH (NSS) 2 FLUSH IV ×3 (08:36→17:57)
[2023-06-30 10:52] VITALS: BMI 15.5
--- NOTE | 2023-06-30 11:23 | W.PN.HOSP.TC ---
Today's Communication/Plan
-
monitor vitals
see plan
PT/OT
cw PPI and carafate
encourage PO intake
urine cx;abx
Assessment / Plan
Assessment / Plan
General: Well Developed, Well Nourished and No Apparent Distress,lethargic
HEENT: NormoCephalic, Moist mucous membranes and Atraumatic
Respiratory: Clear
Cardiac: S1/S2 and Regular Rhythm; No Murmur or Rub
GI: Soft, Non Tender, Non Distended and Normal Bowel Sounds
Rectal: Deferred by Provider
Musculoskeletal: left knee immobilizer
Skin: No Rash
Neuro: Nonfocal/grossly intact
Sepsis 2/2 UTI
Suspect TME secondary to above, continue to monitor
-Follow urine culture with gram-negative bacilli, blood cultures NGTD
-IV cefepime
� � ��CT head:�No acute intracranial abnormality
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
#Garbled speech likely secondary to sepsis UTI concern for dysphagia plus ill fitting upper and lower dentures
-now on dysphagia diet
-speech consulted; ok for soft and bite size
CT noted with esophageal wall thickening consistent with esophagitis. Patient has history of esophagitis. History of Scherer's esophagus however was not on PPI on admission. Started on PPI, inc to BID, added carafate. GI following. Will
follow-up outpatient for possible endoscopy
#CVA x 3
Hx old left parietal lobe infarct on CT
-Continue aspirin, statin
#Tibial plateau fracture 05/20/2023
#Chronic ambulatory dysfunction�wheelchair-bound
Left knee immobilizer in place
-Ortho had recommended nonweightbearing
-Patient receives home PT but is reportedly wheelchair-bound
-PT/OT following
#Essential thrombocytosis
Was previously on hydroxyurea taken off since recent blood transfusion
Spoke with Dr. Skelton from hematology, he does not think patient should be restarted on hydroxyurea at this time. Instructed patient to follow-up with her outpatient gluing machine offbearer
#Scherer's esophagus
#Peptic ulcer disease
#Upper GI bleed Hx
-Hgb stable
-Added IV PPI
Constipation
laxatives
Hypokalemia
replete
Mild anemia, likely anemia of chronic disease
Monitor
#Chronic hyponatremia
monitor
#HLD
statin
#Anxiety/depression
-Continue clonazepam 1 mg at bedtime will hold for sedation
#Insomnia
-HOLD� temazepam 30 mg at bedtime
#Active smoker
1/2 pack a day smoker x 57 years
-Cessation advised
#Hx history chronic back and neck pain
Blind left eye
#Cachexia from malnutrition, BMI 15.3 EKG
DVT prophylaxis
Subcu Lovenox
DNR
I spent a total of 52 minutes with the patient or on the floor. More than 50% of this time involved counseling and coordination of care.
Anticipated Discharge: Within 24 hours
Subjective/Interval History
-
Date of Service: June 30, 2023
denies pain
Objective Data
-
Labs:
Laboratory Results
06/30/23
07:02
WBC 9.0
Hgb 9.4 L
Hct 28.4 L
Plt Count 482 H
Sodium 133 L
Potassium 3.4 L
Chloride 106
Carbon Dioxide 28
BUN 9
Creatinine 0.5 L
Glucose 83
Calcium 7.7 L
Vital Signs:
Vital Signs
Temp Pulse Resp BP Pulse Ox
97.6 F 65 18 115/63 100
06/30/23 07:00 06/30/23 07:00 06/30/23 07:00 06/30/23 07:00 06/30/23 07:00
I&O
06/29/23 06/30/23 07/01/23
06:59 06:59 06:59
Intake Total 0 / 0 720 / 720
Balance 0 / 0 720 / 720
[2023-06-30] MEDS: KLOR-CON 20 MEQ PO (13:22)
--- NOTE | 2023-06-30 14:10 | PTOTSP ---
Speech Language Pathology
Pt seen for dysphagia tx. Per RN, pt taking meds without difficulty, but has poor appetite. Significant dysphonia noted, and pt stated this started recently and fairly suddenly. Consider ENT consult. Wet vocal quality also noted at rest. Able
to clear wet vocal quality with cued cough, but then returned as pt continued speaking.
P.O. trials of soft solids and thin liquids provided. Cough with 1/3 trials of thin liquid via straw, no cough noted via cup. Pt denied any odynophagia with trials provided. Can consider downgrading diet for comfort; however, suspect this would
negatively affect appetite, which is already poor. Will hold on VSE at this time given minimal intake, normal WBC, and fact that pt unlikely to tolerate study at this time.
Recommend:
(1) Continue IDDSI Level 6 Solids (Soft/Bite-Sized) and Thin liquids
(2) Aspiration precautions: sit upright, slow rate, single sips
(3) Meds as tolerated
(4) Consider ENT consult
(5) Will continue to consider VSE as indicated based on tolerance of diet
(6) MEDICAL ENGINEER to continue to follow
[2023-06-30 15:00] VITALS: BP 117/73
[2023-06-30] MEDS: LOVENOX 40 MG SC (17:56)
[2023-06-30] MEDS: LIPITOR 40 MG PO (21:28)
[2023-06-30] MEDS: KLONOPIN 1 MG PO (21:28)
[2023-06-30 23:44] VITALS: BP 105/51
[2023-07-01] MEDS: STERILE WATER FOR INJECTION 10 ML IV (01:51)
[2023-07-01] MEDS: MAXIPIME 1000 MG IV (01:51)
[2023-07-01 07:39] VITALS: BP 130/66
[2023-07-01 07:40] LABS: % Basophils 1.1 % (0-2); % Eosinophils 7.1 % (0-6); % Immature Granulocytes 1.5 % (0-0.5); % Lymphocytes 17.5 % (20.5-51.1); % Monocytes 10.3 % (1.7-9.3); % Neutrophils 62.5 % (42.2-75.2); Absolute Basophils 0.1 10^3/uL (0-0.2); Absolute Eosinophils 0.7 10^3/uL (0-0.7); Absolute Immature Granulocytes 0.1 10^3/uL (0-0.05); Absolute Lymphocytes 1.6 10^3/uL (1.2-3.4); Absolute Monocytes 0.9 10^3/uL (0.1-0.6); Absolute Neutrophils 5.7 10^3/uL (1.4-6.5); Hematocrit 29.5 % (37.0-47.0); Hemoglobin 9.7 g/dL (12.0-16.0); Mean Corp Hgb Conc. 32.9 g/dL (33.0-37.0); Mean Corpuscular Hgb 32.8 pg (27.0-31.0); Mean Corpuscular Volume 99.7 fL (81.0-99.0); Mean Platelet Volume 11.5 fL (7.4-10.4); Nucleated Red Blood Cells % 0 %; Platelet Count 474 10^3/uL (130-400); Red Blood Cell Count 2.96 10^6/uL (4.20-5.40); Red Cell Dist. Width 18.5 % (11.5-14.5); White Blood Cell Count 9.1 10^3/uL (4.8-10.8)
[2023-07-01] MEDS: VITAMIN B-12 1000 MCG PO (07:50)
[2023-07-01] MEDS: COLACE 100 MG PO ×2 (07:50→20:40)
[2023-07-01] MEDS: MIRALAX 17 GRAMS PO (07:50)
[2023-07-01] MEDS: ASPIR LOW (ENTERIC COATED) 81 MG PO (07:50)
[2023-07-01] MEDS: CARAFATE SUSPENSION 1 GM PO ×4 (07:50→21:02)
[2023-07-01] MEDS: VITAMIN D3 (cholecalciferol) 25 MCG PO (07:50)
[2023-07-01] MEDS: PROTONIX IV 40 MG IV ×2 (07:51→20:40)
[2023-07-01] MEDS: NSS (PRESERVATIVE FREE) 10 ML IV ×2 (07:52→20:39)
[2023-07-01] MEDS: OMNICEF 300 MG PO ×2 (08:52→20:40)
[2023-07-01 09:37] LABS: Blood Urea Nitrogen 10 mg/dl (7-17); Calcium 8.2 mg/dl (8.4-10.2); Carbon Dioxide 28 mmol/L (22-30); Chloride 106 mmol/L (98-107); Estimated Creatinine Clearance 54 ml/min; Glucose 95 mg/dl (70-99); Potassium 3.9 mmol/L (3.5-5.1); Sodium 134 mmol/L (135-145); eGFR > 60.00
--- NOTE | 2023-07-01 10:06 | PTOTSP ---
ST Dysphagia Follow up/Tx session
Mild/functional oral and known esophageal dysphagia; goyal's esophagus, odynophagia/esophagitis
Pt received awake/alert oriented x3-4 a little forgetful. Per pt report ongoing odynophagia equally across all textures/consistencies. Reports dislike of current diet. HOB raised upright for PO trials of regular solids and thin liquids. Placed lower
denture prior to PO trials
Self fed regular solids demo adequate anterior bite, extended yet functional mastication, independently taking small bites/slow rate and bolus was orally cleared. Thin liquids by small/single cup sip swallow appears prompt. No overt s/sx of
aspiration observed during this session
Recommend
1. Advance to Regular solids (L7) and Thin liquids
2. Maintain aspiration and MARY/reflux precautions
3. Small bites, alternate liquids/solids and slow rate
4. Meds oral per pt preference and RN discretion
5. INTERMEDIATE ACCOUNTANT follow up 1-2x
--- NOTE | 2023-07-01 10:43 | PN.CDI ---
CDI
- -
CDI:
Physician Documentation Request
Admit Date: 06/27/23 19:54
Dear Doctor Luis,
Patient admitted with sepsis.
PN, 'Cachexia from malnutrition, BMI 15.3.'
Nutrition note, ' Due to RD observations of fat/muscle loss and estimated energy intakes of <75% estimated energy requirement for > 1 month, pt meeting criteria for moderate protein calorie malnutrition (ASPEN/AND, chronic illness).
Please provide in your note the severity of documented malnutrition:
Moderate protein calorie malnutrition
Other (please specify)
[place] Criteria ([facility] 2017)
2 or more criteria must be present for either
non severe or severe malnutrition
Note that the criteria differs related to the
presence of an acute or chronic illness
Chronic Illness
Energy Intake Non Severe: <75% for >1 month
Severe: <75% for >1 month
Weight Loss Non Severe: 5% over 1 month
7.5% over 3 months
10% over 6 months
20% over 1 year
Severe: >5% over 1 month
>7.5% over 3 months
>10% over 6 months
>20% over 1 year
Body Fat Non Severe: Mild Loss
Severe: Severe Loss
Muscle Mass Non Severe: Mild Loss
Severe: Severe Loss
Fluid Accumulation Non Severe: Mild Accumulation
Severe: Moderate to severe
accumulation
Reduced Television News Photographer Strength Non Severe: N/A
Severe: Measurably reduced
Use of terms such as suspected, likely, concern for, or probable (associated with a specific diagnosis that is being evaluated, monitored, or treated as if it exists) are acceptable and can be coded in the inpatient setting, when documented at the
time of discharge.
Thank you,
Dolly HERNANDEZ, RN,CCDS
CDI Specialist
Available via [employer] text
Please use your independent medical judgment in providing your response.
[2023-07-01 10:51] VITALS: BP 129/64; PULSE 84
[2023-07-01 11:30] VITALS: BP 132/67
--- NOTE | 2023-07-01 11:32 | W.PN.HOSP.TC ---
Today's Communication/Plan
-
Monitor vital signs and see plan
Discharge planning
Switch antibiotics to oral
Diet upgraded to regular
Add Ensure
Continue with PPI, Carafate
Assessment / Plan
Assessment / Plan
General: Well Developed, Well Nourished and No Apparent Distress,lethargic
HEENT: NormoCephalic, Moist mucous membranes and Atraumatic
Respiratory: Clear
Cardiac: S1/S2 and Regular Rhythm; No Murmur or Rub
GI: Soft, Non Tender, Non Distended and Normal Bowel Sounds
Rectal: Deferred by Provider
Musculoskeletal: left knee immobilizer
Skin: No Rash
Neuro: Nonfocal/grossly intact
Sepsis 2/2 UTI
Suspect TME secondary to above, continue to monitor
-Follow urine culture with ecoli, blood cultures NGTD
-Switch antibiotic to cefdinir to finish course
� � ��CT head:�No acute intracranial abnormality
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
#Garbled speech likely secondary to sepsis UTI concern for dysphagia plus ill fitting upper and lower dentures
-now on dysphagia diet
-speech following, now titrated to regular diet
CT noted with esophageal wall thickening consistent with esophagitis. Patient has history of esophagitis. History of Scherer's esophagus however was not on PPI on admission. Started on PPI, inc to BID, added carafate. GI following. Will
follow-up outpatient for possible endoscopy
#CVA x 3
Hx old left parietal lobe infarct on CT
-Continue aspirin, statin
#Tibial plateau fracture 05/20/2023
#Chronic ambulatory dysfunction�wheelchair-bound
Left knee immobilizer in place
-Ortho had recommended nonweightbearing
-Patient receives home PT but is reportedly wheelchair-bound
-PT/OT following
#Essential thrombocytosis
Was previously on hydroxyurea taken off since recent blood transfusion
Spoke with Dr. Skelton from hematology, he does not think patient should be restarted on hydroxyurea at this time. Instructed patient to follow-up with her outpatient cable engineer
#Scherer's esophagus
#Peptic ulcer disease
#Upper GI bleed Hx
-Hgb stable
-Added IV PPI
Constipation
laxatives
Hypokalemia
replete
Mild anemia, likely anemia of chronic disease
Monitor
#Chronic hyponatremia
monitor
#HLD
statin
#Anxiety/depression
-Continue clonazepam 1 mg at bedtime will hold for sedation
#Insomnia
-HOLD� temazepam 30 mg at bedtime
#Active smoker
1/2 pack a day smoker x 57 years
-Cessation advised
#Hx history chronic back and neck pain
Blind left eye
Moderate protein calorie malnutrition
#Cachexia from malnutrition, BMI 15.3 EKG
DVT prophylaxis
Subcu Lovenox
DNR
Anticipated Discharge: Within 24 hours
Subjective/Interval History
-
Date of Service: July 01, 2023
denies pain
Objective Data
-
Labs:
Laboratory Results
07/01/23 07/01/23
07:00 08:59
WBC 9.1
Hgb 9.7 L
Hct 29.5 L
Plt Count 474 H
Sodium Cancelled 134 L
Potassium Cancelled 3.9
Chloride Cancelled 106
Carbon Dioxide Cancelled 28
BUN Cancelled 10
Creatinine Cancelled 0.6
Glucose Cancelled 95
Calcium Cancelled 8.2 L
Vital Signs:
Vital Signs
Temp Pulse Resp BP Pulse Ox
97.9 F 82 16 130/66 96
07/01/23 07:39 07/01/23 07:39 07/01/23 07:39 07/01/23 07:39 07/01/23 07:39
I&O
06/30/23 07/01/23 07/02/23
06:59 06:59 06:59
Intake Total 720 / 720 720 / 720
Balance 720 / 720 720 / 720
--- NOTE | 2023-07-01 13:54 | CM ---
Addendum entered by Jacy Beck 07/01/23 17:17:
CM to please call Annalisa Malhotra/admissions at [facility] on her cell who is marketing automation manager this weekend at [phone]
Annalisa has initiated IBC auth. and she will provide auth details once obtained
Patient's daughter's name is Deanna and she would also like to be contacted regarding d/c status @ [phone]
Annalisa to provide report & fax for facility
Original Note:
CM following re: d/c planning
Chart reviewed
Pt discharge anticipated within the next 24 hours
Anticipated d/c is to SNF
CM placed a referral to [facility] at the request of the patient's daughter
Per Annalisa Malhotra/admissions at the SNF, she will obtain insurance auth. and provide update when available
CM will continue to follow patient progress and assist with continued needs at d/c as indicated
PLAN; d/c to [facility] pending insurance auth
[2023-07-01 15:46] VITALS: BP 122/60
[2023-07-01] MEDS: LOVENOX 40 MG SC (17:18)
[2023-07-01] MEDS: FLUSH (NSS) 2 FLUSH IV (20:40)
[2023-07-01] MEDS: KLONOPIN 1 MG PO (21:02)
[2023-07-01] MEDS: LIPITOR 40 MG PO (21:03)
[2023-07-01 23:57] VITALS: BP 115/66
[2023-07-02 07:56] VITALS: BP 140/67
[2023-07-02 08:15] LABS: % Basophils 0.8 % (0-2); % Eosinophils 7.9 % (0-6); % Immature Granulocytes 2.8 % (0-0.5); % Lymphocytes 20.7 % (20.5-51.1); % Monocytes 9.9 % (1.7-9.3); % Neutrophils 57.9 % (42.2-75.2); Absolute Basophils 0.1 10^3/uL (0-0.2); Absolute Eosinophils 0.7 10^3/uL (0-0.7); Absolute Immature Granulocytes 0.3 10^3/uL (0-0.05); Absolute Lymphocytes 1.9 10^3/uL (1.2-3.4); Absolute Monocytes 0.9 10^3/uL (0.1-0.6); Absolute Neutrophils 5.4 10^3/uL (1.4-6.5); Hematocrit 27.8 % (37.0-47.0); Hemoglobin 9.3 g/dL (12.0-16.0); Mean Corp Hgb Conc. 33.5 g/dL (33.0-37.0); Mean Corpuscular Hgb 33.3 pg (27.0-31.0); Mean Corpuscular Volume 99.6 fL (81.0-99.0); Nucleated Red Blood Cells % 0 %; Platelet Count 515 10^3/uL (130-400); Red Blood Cell Count 2.79 10^6/uL (4.20-5.40); Red Cell Dist. Width 18.2 % (11.5-14.5); White Blood Cell Count 9.3 10^3/uL (4.8-10.8)
[2023-07-02] MEDS: COLACE 100 MG PO ×2 (08:38→20:15)
[2023-07-02] MEDS: NSS (PRESERVATIVE FREE) 10 ML IV ×2 (08:38→20:18)
[2023-07-02] MEDS: CARAFATE SUSPENSION 1 GM PO ×4 (08:38→21:17)
[2023-07-02] MEDS: MIRALAX PO ×2 (08:38→08:44)
[2023-07-02] MEDS: ASPIR LOW (ENTERIC COATED) 81 MG PO (08:38)
[2023-07-02] MEDS: VITAMIN D3 (cholecalciferol) 25 MCG PO (08:39)
[2023-07-02] MEDS: OMNICEF 300 MG PO ×2 (08:39→20:15)
[2023-07-02] MEDS: VITAMIN B-12 1000 MCG PO (08:39)
[2023-07-02] MEDS: PROTONIX IV 40 MG IV ×2 (08:39→20:19)
[2023-07-02] MEDS: FLUSH (NSS) 2 FLUSH IV (08:40)
[2023-07-02 09:27] LABS: Blood Urea Nitrogen 10 mg/dl (7-17); Calcium 7.8 mg/dl (8.4-10.2); Carbon Dioxide 30 mmol/L (22-30); Chloride 101 mmol/L (98-107); Estimated Creatinine Clearance 54 ml/min; Glucose 75 mg/dl (70-99); Potassium 3.5 mmol/L (3.5-5.1); Sodium 135 mmol/L (135-145); eGFR > 60.00
--- NOTE | 2023-07-02 11:35 | W.PN.HOSP.TC ---
Today's Communication/Plan
-
Monitor vital signs and see plan
Medically okay to be discharge today, computer systems manager aware
cefdinir
Assessment / Plan
Assessment / Plan
General: Well Developed, No Apparent Distress
HEENT: NormoCephalic, Moist mucous membranes and Atraumatic
Respiratory: Clear
Cardiac: S1/S2 and Regular Rhythm; No Murmur or Rub
GI: Soft, Non Tender, Non Distended and Normal Bowel Sounds
Rectal: Deferred by Provider
Musculoskeletal: left knee immobilizer
Skin: No Rash
Neuro: Nonfocal/grossly intact
Sepsis 2/2 UTI
Suspect TME secondary to above, continue to monitor
-Follow urine culture with ecoli, blood cultures NGTD
-Switch antibiotic to cefdinir to finish course
� � ��CT head:�No acute intracranial abnormality
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
#Garbled speech likely secondary to sepsis UTI concern for dysphagia plus ill fitting upper and lower dentures
-speech following, now titrated to regular diet
CT noted with esophageal wall thickening consistent with esophagitis. Patient has history of esophagitis. History of Scherer's esophagus however was not on PPI on admission. Started on PPI, inc to BID, added carafate. GI following. Will
follow-up outpatient for possible endoscopy
#CVA x 3
Hx old left parietal lobe infarct on CT
-Continue aspirin, statin
#Tibial plateau fracture 05/20/2023
#Chronic ambulatory dysfunction�wheelchair-bound
Left knee immobilizer in place
-Ortho had recommended nonweightbearing
-Patient receives home PT but is reportedly wheelchair-bound
-PT/OT following
#Essential thrombocytosis
Was previously on hydroxyurea taken off since recent blood transfusion
Spoke with Dr. Skelton from hematology, he does not think patient should be restarted on hydroxyurea at this time. Instructed patient to follow-up with her outpatient pyrometallurgical engineer
#Scherer's esophagus
#Peptic ulcer disease
#Upper GI bleed Hx
-Hgb stable
-Added IV PPI
Constipation
laxatives
Hypokalemia
improving
Mild anemia, likely anemia of chronic disease
Monitor
#Chronic hyponatremia
monitor
#HLD
statin
#Anxiety/depression
-Continue clonazepam 1 mg at bedtime will hold for sedation
#Insomnia
-HOLD� temazepam 30 mg at bedtime
#Active smoker
1/2 pack a day smoker x 57 years
-Cessation advised
#Hx history chronic back and neck pain
Blind left eye
Moderate protein calorie malnutrition
#Cachexia from malnutrition, BMI 15.3 EKG
DVT prophylaxis
Subcu Lovenox
DNR
Anticipated Discharge: Today
Subjective/Interval History
-
Date of Service: July 02, 2023
denies pain
Objective Data
-
Labs:
Laboratory Results
07/02/23
06:58
WBC 9.3
Hgb 9.3 L
Hct 27.8 L
Plt Count 515 H
Sodium 135
Potassium 3.5
Chloride 101
Carbon Dioxide 30
BUN 10
Creatinine 0.6
Glucose 75
Calcium 7.8 L
Vital Signs:
Vital Signs
Temp Pulse Resp BP Pulse Ox
97.6 F 77 18 140/67 95
07/02/23 07:56 07/02/23 07:56 07/02/23 07:56 07/02/23 07:56 07/02/23 09:00
I&O
07/01/23 07/02/23 07/03/23
06:59 06:59 06:59
Intake Total 720 / 720 320 / 320
Balance 720 / 720 320 / 320
--- NOTE | 2023-07-02 13:30 | CM ---
Addendum entered by Corazon Streeter 07/02/23 14:21:
Multiple calls placed to patient's insurance [employer], still no determination.
Addendum entered by Corazon Streeter 07/02/23 13:35:
Pending reference [id number]
Original Note:
Call placed to [facility] and supportive employment case manager spoke with Annalisa Malhotra [phone] and pending ref # [id number].
Plan; Waiting on Auth from insurance, pending reference [id number].
[2023-07-02 15:31] VITALS: BP 112/61
[2023-07-02] MEDS: LOVENOX 40 MG SC (17:36)
[2023-07-02] MEDS: LIPITOR 40 MG PO (21:17)
[2023-07-02] MEDS: KLONOPIN 1 MG PO (21:17)
[2023-07-02 23:50] VITALS: BP 126/63
[2023-07-03 06:06] LABS: % Basophils 0.7 % (0-2); % Eosinophils 7.1 % (0-6); % Immature Granulocytes 3.7 % (0-0.5); % Lymphocytes 20.9 % (20.5-51.1); % Monocytes 10.5 % (1.7-9.3); % Neutrophils 57.1 % (42.2-75.2); Absolute Basophils 0.1 10^3/uL (0-0.2); Absolute Eosinophils 0.7 10^3/uL (0-0.7); Absolute Immature Granulocytes 0.4 10^3/uL (0-0.05); Absolute Neutrophils 5.4 10^3/uL (1.4-6.5); Hematocrit 29.2 % (37.0-47.0); Hemoglobin 9.6 g/dL (12.0-16.0); Mean Corp Hgb Conc. 32.9 g/dL (33.0-37.0); Mean Corpuscular Hgb 32.7 pg (27.0-31.0); Mean Corpuscular Volume 99.3 fL (81.0-99.0); Mean Platelet Volume 10.7 fL (7.4-10.4); Nucleated Red Blood Cells % 0 %; Platelet Count 585 10^3/uL (130-400); Red Blood Cell Count 2.94 10^6/uL (4.20-5.40); Red Cell Dist. Width 18.1 % (11.5-14.5); White Blood Cell Count 9.5 10^3/uL (4.8-10.8)
[2023-07-03 06:30] LABS: Blood Urea Nitrogen 8 mg/dl (7-17); Calcium 7.7 mg/dl (8.4-10.2); Carbon Dioxide 30 mmol/L (22-30); Chloride 101 mmol/L (98-107); Estimated Creatinine Clearance 54 ml/min; Glucose 78 mg/dl (70-99); Potassium 3.7 mmol/L (3.5-5.1); Sodium 130 mmol/L (135-145); eGFR > 60.00
[2023-07-03 07:29] VITALS: BP 107/68
[2023-07-03] MEDS: COLACE PO ×2 (08:57→20:21)
[2023-07-03] MEDS: MIRALAX PO (08:57)
[2023-07-03] MEDS: CARAFATE SUSPENSION 1 GM PO ×4 (08:57→21:11)
[2023-07-03] MEDS: ASPIR LOW (ENTERIC COATED) 81 MG PO (08:57)
[2023-07-03] MEDS: VITAMIN D3 (cholecalciferol) 25 MCG PO (08:58)
[2023-07-03] MEDS: NSS (PRESERVATIVE FREE) 10 ML IV ×2 (08:58→20:07)
[2023-07-03] MEDS: VITAMIN B-12 1000 MCG PO (08:58)
[2023-07-03] MEDS: PROTONIX IV 40 MG IV ×2 (08:58→20:06)
[2023-07-03] MEDS: FLUSH (NSS) 2 FLUSH IV (09:00)
--- NOTE | 2023-07-03 09:36 | CM ---
GINGER called Annalisa with [facility] for update on SNF auth. Auth is still pending under review. CM contact info given for today if any update arrives and Annalisa with reach out.
Annalisa [phone]
--- NOTE | 2023-07-03 12:27 | W.PN.HOSP.TC ---
Addendum entered and electronically signed by Nickolas Smith MD 07/03/23 16:46:
Daughter updated over the phone
Original Note:
Today's Communication/Plan
-
Monitor vital signs and see plan
Awaiting placement
Assessment / Plan
Assessment / Plan
General: Well Developed, No Apparent Distress
HEENT: NormoCephalic, Moist mucous membranes and Atraumatic
Respiratory: Clear
Cardiac: S1/S2 and Regular Rhythm; No Murmur or Rub
GI: Soft, Non Tender, Non Distended and Normal Bowel Sounds
Rectal: Deferred by Provider
Musculoskeletal: left knee immobilizer
Skin: No Rash
Neuro: Nonfocal/grossly intact
Sepsis 2/2 UTI
Suspect TME secondary to above, continue to monitor
-Follow urine culture with ecoli, blood cultures NGTD
-Switch antibiotic to cefdinir to finish course
� � ��CT head:�No acute intracranial abnormality
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
#Garbled speech likely secondary to sepsis UTI concern for dysphagia plus ill fitting upper and lower dentures
-speech following, now titrated to regular diet
CT noted with esophageal wall thickening consistent with esophagitis. Patient has history of esophagitis. History of Scherer's esophagus however was not on PPI on admission. Started on PPI, inc to BID, added carafate. GI following. Will
follow-up outpatient for possible endoscopy
#CVA x 3
Hx old left parietal lobe infarct on CT
-Continue aspirin, statin
#Tibial plateau fracture 05/20/2023
#Chronic ambulatory dysfunction�wheelchair-bound
Left knee immobilizer in place
-Ortho had recommended nonweightbearing
-Patient receives home PT but is reportedly wheelchair-bound
-PT/OT following
#Essential thrombocytosis
Was previously on hydroxyurea taken off since recent blood transfusion
Spoke with Dr. Skelton from hematology, he does not think patient should be restarted on hydroxyurea at this time. Instructed patient to follow-up with her outpatient natural sciences professor
#Scherer's esophagus
#Peptic ulcer disease
#Upper GI bleed Hx
-Hgb stable
-Added IV PPI
Constipation
laxatives
Hypokalemia
improving
Mild anemia, likely anemia of chronic disease
Monitor
#Chronic hyponatremia
monitor
#HLD
statin
#Anxiety/depression
-Continue clonazepam 1 mg at bedtime will hold for sedation
#Insomnia
-HOLD� temazepam 30 mg at bedtime
#Active smoker
1/2 pack a day smoker x 57 years
-Cessation advised
#Hx history chronic back and neck pain
Blind left eye
Moderate protein calorie malnutrition
#Cachexia from malnutrition, BMI 15.3 EKG
DVT prophylaxis
Subcu Lovenox
DNR
Anticipated Discharge: Today
Subjective/Interval History
-
Date of Service: July 03, 2023
Denies pain
Objective Data
-
Labs:
Laboratory Results
07/03/23
05:42
WBC 9.5
Hgb 9.6 L
Hct 29.2 L
Plt Count 585 H
Sodium 130 L
Potassium 3.7
Chloride 101
Carbon Dioxide 30
BUN 8
Creatinine 0.6
Glucose 78
Calcium 7.7 L
Vital Signs:
Vital Signs
Temp Pulse Resp BP Pulse Ox
97.8 F 76 14 107/68 94
07/03/23 07:29 07/03/23 07:29 07/03/23 07:29 07/03/23 07:29 07/03/23 09:00
I&O
07/02/23 07/03/23 07/04/23
06:59 06:59 06:59
Intake Total 320 / 320 240 / 240
Balance 320 / 320 240 / 240
[2023-07-03 13:40] VITALS: BP 146/80; PULSE 82; O2SAT 96
[2023-07-03 15:51] VITALS: BP 106/68
[2023-07-03] MEDS: LOVENOX 40 MG SC (18:26)
[2023-07-03] MEDS: FLUSH (NSS) 1 FLUSH IV (20:10)
[2023-07-03] MEDS: LIPITOR 40 MG PO (21:11)
[2023-07-03] MEDS: KLONOPIN 1 MG PO (21:11)
[2023-07-03 23:07] VITALS: BP 127/58
[2023-07-04 07:05] VITALS: BP 133/64
[2023-07-04 08:14] LABS: % Basophils 0.7 % (0-2); % Eosinophils 5.4 % (0-6); % Immature Granulocytes 2.4 % (0-0.5); % Lymphocytes 21.2 % (20.5-51.1); % Monocytes 11.4 % (1.7-9.3); % Neutrophils 58.9 % (42.2-75.2); Absolute Basophils 0.1 10^3/uL (0-0.2); Absolute Eosinophils 0.5 10^3/uL (0-0.7); Absolute Immature Granulocytes 0.2 10^3/uL (0-0.05); Absolute Monocytes 1.1 10^3/uL (0.1-0.6); Absolute Neutrophils 5.4 10^3/uL (1.4-6.5); Hematocrit 28.4 % (37.0-47.0); Hemoglobin 9.3 g/dL (12.0-16.0); Mean Corp Hgb Conc. 32.7 g/dL (33.0-37.0); Mean Corpuscular Hgb 32.5 pg (27.0-31.0); Mean Corpuscular Volume 99.3 fL (81.0-99.0); Mean Platelet Volume 11.1 fL (7.4-10.4); Nucleated Red Blood Cells % 0 %; Platelet Count 591 10^3/uL (130-400); Red Blood Cell Count 2.86 10^6/uL (4.20-5.40); White Blood Cell Count 9.2 10^3/uL (4.8-10.8)
[2023-07-04] MEDS: COLACE PO ×2 (09:20→21:05)
[2023-07-04] MEDS: MIRALAX PO (09:20)
[2023-07-04] MEDS: ASPIR LOW (ENTERIC COATED) 81 MG PO (09:21)
[2023-07-04] MEDS: VITAMIN D3 (cholecalciferol) 25 MCG PO (09:21)
[2023-07-04] MEDS: CARAFATE SUSPENSION 1 GM PO ×4 (09:21→21:06)
[2023-07-04] MEDS: VITAMIN B-12 1000 MCG PO (09:21)
[2023-07-04] MEDS: PROTONIX IV 40 MG IV ×2 (09:22→21:05)
[2023-07-04] MEDS: NSS (PRESERVATIVE FREE) 10 ML IV ×2 (09:22→21:05)
[2023-07-04] MEDS: FLUSH (NSS) 1 FLUSH IV (09:22)
--- NOTE | 2023-07-04 10:45 | W.PN.HOSP.TC ---
Today's Communication/Plan
-
monitor vitals
see plan
awaiting placement
will need ortho f/u outpatient
Assessment / Plan
Assessment / Plan
General: Well Developed, No Apparent Distress
HEENT: NormoCephalic, Moist mucous membranes and Atraumatic
Respiratory: Clear
Cardiac: S1/S2 and Regular Rhythm; No Murmur or Rub
GI: Soft, Non Tender, Non Distended and Normal Bowel Sounds
Rectal: Deferred by Provider
Musculoskeletal: left knee immobilizer
Skin: No Rash
Neuro: Nonfocal/grossly intact
Sepsis 2/2 UTI
Suspect TME secondary to above, continue to monitor
-Follow urine culture with ecoli, blood cultures NGTD
-Switch antibiotic to cefdinir to finish course
� � ��CT head:�No acute intracranial abnormality
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
#Garbled speech likely secondary to sepsis UTI concern for dysphagia plus ill fitting upper and lower dentures
-speech following, now titrated to regular diet
CT noted with esophageal wall thickening consistent with esophagitis. Patient has history of esophagitis. History of Scherer's esophagus however was not on PPI on admission. Started on PPI, inc to BID, added carafate. GI following. Will
follow-up outpatient for possible endoscopy
#CVA x 3
Hx old left parietal lobe infarct on CT
-Continue aspirin, statin
#Tibial plateau fracture 05/20/2023
#Chronic ambulatory dysfunction�wheelchair-bound
Left knee immobilizer in place
-Ortho had recommended nonweightbearing
-Patient receives home PT but is reportedly wheelchair-bound
-PT/OT following
#Essential thrombocytosis
Was previously on hydroxyurea taken off since recent blood transfusion
Spoke with Dr. Skelton from hematology, he does not think patient should be restarted on hydroxyurea at this time. Instructed patient to follow-up with her outpatient customer operations manager
#Scherer's esophagus
#Peptic ulcer disease
#Upper GI bleed Hx
-Hgb stable
-Added PPI
Constipation
laxatives
Hypokalemia
improving
Mild anemia, likely anemia of chronic disease
Monitor
#Chronic hyponatremia
monitor
#HLD
statin
#Anxiety/depression
-Continue clonazepam 1 mg at bedtime will hold for sedation
#Insomnia
-HOLD� temazepam 30 mg at bedtime
#Active smoker
1/2 pack a day smoker x 57 years
-Cessation advised
#Hx history chronic back and neck pain
Blind left eye
Moderate protein calorie malnutrition
#Cachexia from malnutrition, BMI 15.3 EKG
DVT prophylaxis
Subcu Lovenox
DNR
Awaiting placement
Anticipated Discharge: Today
Subjective/Interval History
-
Date of Service: July 04, 2023
denies pain
Objective Data
-
Labs:
Laboratory Results
07/04/23
07:10
WBC 9.2
Hgb 9.3 L
Hct 28.4 L
Plt Count 591 H
Vital Signs:
Vital Signs
Temp Pulse Resp BP Pulse Ox
98.1 F 76 16 133/64 93
07/04/23 07:05 07/04/23 07:05 07/04/23 07:05 07/04/23 07:05 07/04/23 09:18
I&O
07/03/23 07/04/23 07/05/23
06:59 06:59 06:59
Intake Total 240 / 240 480 / 480
Balance 240 / 240 480 / 480
[2023-07-04 11:06] VITALS: BP 122/59
--- NOTE | 2023-07-04 11:45 | CM ---
Addendum entered by Jacy Beck 07/04/23 15:52:
CM received notification that peer to peer was denied
CM called and notified the patient's daughter of the same
Annalisa/clinical liaison with [facility] mentioned the possibility of the patient going to SNF pending the daughter cooperates with MA application
The alternative is the patient being discharged home with VN and [facility]
CM will continue with disposition efforts to ensure patient has a safe discharge
PLAN; CM to follow for needs
Original Note:
CM following re: d/c planning
Chart reviewed
Pt determination for SNF has been forwarded to the clinical medical assistant for a P2P review by 2:30pm today
CM called and spoke with the patient's daughter Deanna to update her of the same
Admissions at [facility] initiated the authorization for patient and they too are awaiting the outcome of the P2P to see if patient will admit to the facility today
CM sent TT message to Dr. Mc with the requested deadline; and will await outcome determination at this time
PLAN; CM following for needs
[2023-07-04 15:17] VITALS: BP 133/62
[2023-07-04] MEDS: LOVENOX 40 MG SC (18:02)
[2023-07-04] MEDS: KLONOPIN 1 MG PO (21:06)
[2023-07-04] MEDS: LIPITOR 40 MG PO (21:06)
[2023-07-04 23:11] VITALS: BP 126/57
[2023-07-05 06:32] LABS: % Basophils 0.8 % (0-2); % Eosinophils 5.1 % (0-6); % Immature Granulocytes 1.7 % (0-0.5); % Lymphocytes 21.2 % (20.5-51.1); % Monocytes 10.9 % (1.7-9.3); % Neutrophils 60.3 % (42.2-75.2); Absolute Basophils 0.1 10^3/uL (0-0.2); Absolute Eosinophils 0.6 10^3/uL (0-0.7); Absolute Immature Granulocytes 0.2 10^3/uL (0-0.05); Absolute Lymphocytes 2.3 10^3/uL (1.2-3.4); Absolute Monocytes 1.2 10^3/uL (0.1-0.6); Absolute Neutrophils 6.6 10^3/uL (1.4-6.5); Hematocrit 28.6 % (37.0-47.0); Hemoglobin 9.5 g/dL (12.0-16.0); Mean Corp Hgb Conc. 33.2 g/dL (33.0-37.0); Mean Corpuscular Hgb 32.9 pg (27.0-31.0); Mean Platelet Volume 10.9 fL (7.4-10.4); Nucleated Red Blood Cells % 0 %; Platelet Count 661 10^3/uL (130-400); Red Blood Cell Count 2.89 10^6/uL (4.20-5.40); Red Cell Dist. Width 17.5 % (11.5-14.5)
[2023-07-05 07:00] VITALS: BP 133/71
[2023-07-05] MEDS: PROTONIX IV 40 MG IV ×2 (09:04→20:58)
[2023-07-05] MEDS: COLACE 100 MG PO ×2 (09:05→20:58)
[2023-07-05] MEDS: ASPIR LOW (ENTERIC COATED) 81 MG PO (09:05)
[2023-07-05] MEDS: NSS (PRESERVATIVE FREE) 10 ML IV ×2 (09:05→20:59)
[2023-07-05] MEDS: VITAMIN D3 (cholecalciferol) 25 MCG PO (09:05)
[2023-07-05] MEDS: CARAFATE SUSPENSION 1 GM PO ×4 (09:05→20:59)
[2023-07-05] MEDS: MIRALAX 17 GRAMS PO (09:05)
[2023-07-05] MEDS: VITAMIN B-12 1000 MCG PO (09:23)
--- NOTE | 2023-07-05 09:44 | W.PN.HOSP.TC ---
Today's Communication/Plan
-
Ongoing disposition efforts
Assessment / Plan
Assessment / Plan
Gen: NAD, Awake and alert, NCAT, appears chronicallyill
Eyes: EOMI, PERRLA, no scleral icterus.
Neck: supple.
CV: RRR, +S1/S2, no m/r/g.
Resp: CTAB, no rales, wheezes, or rhonchi.
Abd: +BS, soft, NT, ND
Skin: No rashes.
Neuro: CN 2-12 intact, non-focal.
Psych: Normal mood and affect.
CT head:�No acute intracranial abnormality. Stable old left parietal lobe infarct with moderate atrophy.
CT A/P: No definitive acute pathology of the abdomen or pelvis identified. Circumferential distal esophageal wall thickening. This can be seen with esophagitis. A mural mass cannot be excluded. Questionable gastric wall thickening of the antrum.
Limited evaluation without oral contrast. Small hiatal hernia. Gallstones. Bilateral nonobstructing renal stones. Moderate fecal material throughout the colon. Myomatous uterus. Compression fractures. These are indeterminate.
CXR: No active cardiopulmonary disease.
Sepsis and acute metabolic encephalopathy due to UTI:
-Suspected garbled speech was due to acute metabolic encephalopathy due to UTI
-UCx with E coli, BCxs NGTD
-completed antibiotic course with cefdinir
Dysphagia:
-speech saw, currently on to regular diet
-CT A/P nwith esophageal wall thickening consistent with esophagitis. Patient has history of esophagitis. History of Scherer's esophagus and PUD (with h/o GIB) however was not on PPI on admission. Started on PPI, now increased to BID, Carafate
started.
-GI following. Will follow-up outpatient for possible endoscopy.
Other problems:
h/o CVAs: Cont ASA/statin
Tibial plateau fracture on 05/20/2023
Chronic ambulatory dysfunction, wheelchair-bound
Essential thrombocytosis: was previously on hydroxyurea, taken off since recent blood transfusion. Outpt heme f/u.
Hypokalemia, resolved
Anemia, likely anemia of chronic disease, Hb stable
Chronic hyponatremia
HLD: cont statin
Anxiety/depression: Continue clonazepam
Insomnia
Tobacco abuse disorder: Encourage smoking cessation
Chronic back and neck pain
Blind in left eye
Moderate protein calorie malnutrition with cachexia from malnutrition
DNR/Lovenox
Anticipated Discharge: Within 24 hours
Subjective/Interval History
-
Date of Service: July 05, 2023
Denies CP/SOB.
Objective Data
-
Labs:
Laboratory Results
07/05/23
05:27
WBC 11.0 H
Hgb 9.5 L
Hct 28.6 L
Plt Count 661 H
Vital Signs:
Vital Signs
Temp Pulse Resp BP Pulse Ox
97.8 F 70 18 133/71 97
07/05/23 07:00 07/05/23 07:00 07/05/23 07:00 07/05/23 07:00 07/05/23 07:00
I&O
07/04/23 07/05/23 07/06/23
06:59 06:59 06:59
Intake Total 480 / 480 840 / 840
Balance 480 / 480 840 / 840
[2023-07-05 15:00] VITALS: BP 130/65
[2023-07-05] MEDS: LOVENOX 40 MG SC (17:59)
[2023-07-05] MEDS: KLONOPIN 1 MG PO (20:59)
[2023-07-05] MEDS: LIPITOR 40 MG PO (21:01)
[2023-07-05 23:22] VITALS: BP 122/44
[2023-07-06 07:20] VITALS: BP 106/69
[2023-07-06 08:55] VITALS: BP 129/64; PULSE 84; O2SAT 96
[2023-07-06] MEDS: ASPIR LOW (ENTERIC COATED) 81 MG PO (09:23)
[2023-07-06] MEDS: MIRALAX 17 GRAMS PO (09:23)
[2023-07-06] MEDS: VITAMIN D3 (cholecalciferol) 25 MCG PO (09:23)
[2023-07-06] MEDS: CARAFATE SUSPENSION 1 GM PO ×4 (09:23→20:05)
[2023-07-06] MEDS: PROTONIX IV 40 MG IV ×2 (09:23→20:05)
[2023-07-06] MEDS: VITAMIN B-12 1000 MCG PO (09:23)
[2023-07-06] MEDS: COLACE 100 MG PO ×2 (09:23→20:03)
[2023-07-06] MEDS: NSS (PRESERVATIVE FREE) 10 ML IV ×2 (09:24→20:05)
[2023-07-06] MEDS: FLUSH (NSS) 1 FLUSH IV (09:24)
--- NOTE | 2023-07-06 11:00 | W.PN.HOSP.TC ---
Today's Communication/Plan
-
see bold
Assessment / Plan
Assessment / Plan
Gen: NAD, Awake and alert, NCAT, appears chronicallyill
Eyes: EOMI, PERRLA, no scleral icterus.
Neck: supple.
CV: RRR, +S1/S2, no m/r/g.
Resp: CTAB, no rales, wheezes, or rhonchi.
Abd: +BS, soft, NT, ND
Skin: No rashes.
Neuro: CN 2-12 intact, non-focal.
Psych: Normal mood and affect.
CT head:�No acute intracranial abnormality. Stable old left parietal lobe infarct with moderate atrophy.
CT A/P: No definitive acute pathology of the abdomen or pelvis identified. Circumferential distal esophageal wall thickening. This can be seen with esophagitis. A mural mass cannot be excluded. Questionable gastric wall thickening of the antrum.
Limited evaluation without oral contrast. Small hiatal hernia. Gallstones. Bilateral nonobstructing renal stones. Moderate fecal material throughout the colon. Myomatous uterus. Compression fractures. These are indeterminate.
CXR: No active cardiopulmonary disease.
Sepsis and acute metabolic encephalopathy due to UTI:
-Suspected garbled speech was due to acute metabolic encephalopathy due to UTI
-UCx with E coli, BCxs NGTD
-completed antibiotic course with cefdinir
Dysphagia:
-speech saw, currently on to regular diet
-CT A/P nwith esophageal wall thickening consistent with esophagitis. Patient has history of esophagitis. History of Scherer's esophagus and PUD (with h/o GIB) however was not on PPI on admission. Started on PPI, now increased to BID, Carafate
started.
-GI following. Will follow-up outpatient for possible endoscopy.
Other problems:
h/o CVAs: Cont ASA/statin
Tibial plateau fracture on 05/20/2023: outpt ortho follow up. Check L knee Xray.
Chronic ambulatory dysfunction, wheelchair-bound
Essential thrombocytosis: was previously on hydroxyurea, taken off since recent blood transfusion. Outpt heme f/u.
Hypokalemia, resolved
Anemia, likely anemia of chronic disease, Hb stable
Chronic hyponatremia
HLD: cont statin
Anxiety/depression: Continue clonazepam
Insomnia
Tobacco abuse disorder: Encourage smoking cessation
Chronic back and neck pain
Blind in left eye
Moderate protein calorie malnutrition with cachexia from malnutrition
DNR/Lovenox
Medically cleared for discharge. Case management aware.
Anticipated Discharge: Today
Subjective/Interval History
-
Date of Service: July 06, 2023
No new complaints.
Objective Data
-
Vital Signs:
Vital Signs
Temp Pulse Resp BP Pulse Ox
98.4 F 72 18 106/69 96
07/06/23 07:20 07/06/23 07:20 07/06/23 07:20 07/06/23 07:20 07/06/23 09:17
I&O
07/05/23 07/06/23 07/07/23
06:59 06:59 06:59
Intake Total 840 / 840 1070 / 1070
Balance 840 / 840 1070 / 1070
[2023-07-06 15:23] VITALS: BP 137/82
--- NOTE | 2023-07-06 15:24 | PTCARENOTE ---
Pt AAO x3, forgetful at times. SUAREZ; RUE contracted; has slight movement fingers/arm. OOB to chair with assist x2 earlier in shift, kalpana well. VSS. On room air- pulse ox 96%, no SOB. Abd soft, kalpana PO well. Incont small amts urine; pt stated she
only voids once daily at home- 'I don't drink much'. LLE immobilizer in place. Restingi in bed at present, no c/o. Will continue to monitor.
[2023-07-06] MEDS: LOVENOX 40 MG SC (17:35)
[2023-07-06] MEDS: LIPITOR 40 MG PO (20:04)
[2023-07-06] MEDS: KLONOPIN 1 MG PO (20:04)
[2023-07-06 23:31] VITALS: BP 135/64
[2023-07-07 07:00] VITALS: BP 132/56
[2023-07-07] MEDS: MIRALAX 17 GRAMS PO (09:27)
[2023-07-07] MEDS: NSS (PRESERVATIVE FREE) 10 ML IV (09:27)
[2023-07-07] MEDS: CARAFATE SUSPENSION 1 GM PO ×2 (09:27→11:45)
[2023-07-07] MEDS: VITAMIN D3 (cholecalciferol) 25 MCG PO (09:28)
[2023-07-07] MEDS: COLACE 100 MG PO (09:28)
[2023-07-07] MEDS: VITAMIN B-12 1000 MCG PO (09:28)
[2023-07-07] MEDS: PROTONIX IV 40 MG IV (09:28)
[2023-07-07] MEDS: ASPIR LOW (ENTERIC COATED) 81 MG PO (09:28)
--- NOTE | 2023-07-07 11:20 | W.PN.HOSP.TC ---
Today's Communication/Plan
-
d/c
Assessment / Plan
Assessment / Plan
Gen: remains NAD, Awake and alert, NCAT, appears chronicallyill
Eyes: EOMI, PERRLA, no scleral icterus.
Neck: supple.
CV: remains RRR, +S1/S2, no m/r/g.
Resp: CTAB, no rales, wheezes, or rhonchi.
Abd: +BS, soft, NT, ND
Skin: No rashes.
Neuro: remains CN 2-12 intact, non-focal.
Psych: Normal mood and affect.
CT head:�No acute intracranial abnormality. Stable old left parietal lobe infarct with moderate atrophy.
CT A/P: No definitive acute pathology of the abdomen or pelvis identified. Circumferential distal esophageal wall thickening. This can be seen with esophagitis. A mural mass cannot be excluded. Questionable gastric wall thickening of the antrum.
Limited evaluation without oral contrast. Small hiatal hernia. Gallstones. Bilateral nonobstructing renal stones. Moderate fecal material throughout the colon. Myomatous uterus. Compression fractures. These are indeterminate.
CXR: No active cardiopulmonary disease.
L knee Xray: Slight increase in callus formation of the depressed fracture of the lateral tibial plateau. Slight increase in sclerosis. Consistent with continued interval healing. Mild degenerative joint disease of the medial compartment. Small
joint effusion. No additional fracture identified.
Sepsis and acute metabolic encephalopathy due to UTI:
-Suspected garbled speech was due to acute metabolic encephalopathy due to UTI
-UCx with E coli, BCxs NGTD
-completed antibiotic course with cefdinir
Dysphagia:
-speech saw, currently on to regular diet
-CT A/P nwith esophageal wall thickening consistent with esophagitis. Patient has history of esophagitis. History of Scherer's esophagus and PUD (with h/o GIB) however was not on PPI on admission. Started on PPI, now increased to BID, Carafate
started.
-GI following. Will follow-up outpatient for possible endoscopy.
Other problems:
h/o CVAs: Cont ASA/statin
Tibial plateau fracture on 05/20/2023: outpt ortho follow up. L knee Xray above. Case discussed with Dr. Darling. WBAT at pt now > 6 weeks from fx.
Chronic ambulatory dysfunction, wheelchair-bound
Essential thrombocytosis: was previously on hydroxyurea, taken off since recent blood transfusion. Outpt heme f/u.
Hypokalemia, resolved
Anemia, likely anemia of chronic disease, Hb stable
Chronic hyponatremia
HLD: cont statin
Anxiety/depression: Continue clonazepam
Insomnia
Tobacco abuse disorder: Encourage smoking cessation
Chronic back and neck pain
Blind in left eye
Moderate protein calorie malnutrition with cachexia from malnutrition
DNR/Lovenox
Medically cleared for discharge. Case management aware.
Total time spent on d/c = 31 min. This included today's physical exam, progress note, review of laboratory and diagnostic data, preparation of discharge documents and prescriptions, and discussions about the pt's hospital course and discharge plan
with the patient and other biomedical field service engineer involved in the patient's care.
Anticipated Discharge: Today
Subjective/Interval History
-
Date of Service: July 07, 2023
No new complaints.
Objective Data
-
Vital Signs:
Vital Signs
Temp Pulse Resp BP Pulse Ox
97.7 F 68 18 132/56 95
07/07/23 07:00 07/07/23 07:00 07/07/23 07:00 07/07/23 07:00 07/07/23 07:00
I&O
07/06/23 07/07/23 07/08/23
06:59 06:59 06:59
Intake Total 1070 / 1070 970 / 970
Balance 1070 / 1070 970 / 970
--- NOTE | 2023-07-07 13:30 | W.DCSUMMARY ---
Discharge Summary
Discharge Data
Date of Admission: 06/27/23
Date of Discharge: 07/07/23
-
Pending Results: No
Hospital Course
Primary diagnoses:
Sepsis and acute metabolic encephalopathy due to acute urinary tract infection
Secondary diagnoses:
h/o strokes
Tibial plateau fracture on 05/20/2023
Chronic ambulatory dysfunction, wheelchair-bound
Essential thrombocytosis
Hypokalemia
Anemia, likely anemia of chronic disease
Chronic hyponatremia
Hyperlipidemia
Anxiety
Depression
Insomnia
Tobacco abuse disorder
Chronic back and neck pain
Blind in left eye
Moderate protein calorie malnutrition with cachexia from malnutrition
Consultants:
Gastroenterology
Imaging:
CT head:�No acute intracranial abnormality. Stable old left parietal lobe infarct with moderate atrophy.
CT A/P: No definitive acute pathology of the abdomen or pelvis identified. Circumferential distal esophageal wall thickening. This can be seen with esophagitis. A mural mass cannot be excluded. Questionable gastric wall thickening of the antrum.
Limited evaluation without oral contrast. Small hiatal hernia. Gallstones. Bilateral nonobstructing renal stones. Moderate fecal material throughout the colon. Myomatous uterus. Compression fractures. These are indeterminate.
CXR: No active cardiopulmonary disease.
L knee Xray: Slight increase in callus formation of the depressed fracture of the lateral tibial plateau. Slight increase in sclerosis. Consistent with continued interval healing. Mild degenerative joint disease of the medial compartment. Small
joint effusion. No additional fracture identified.
77-year-old female presented with chief complaints of change in mental status and lethargy as well as dysuria as outlined in the H&P done on admission. Hospital course per problem was:
Sepsis and acute metabolic encephalopathy due to UTI: Patient was initially placed on cefepime. Urine culture grew E. coli and blood cultures were no growth to date. She completed a course of antibiotics with cefdinir. The patient's garbled
speech was likely due to acute metabolic encephalopathy due to UTI and resolved. Her mentation was at baseline at the time of discharge.
Dysphagia: Patient was seen in consultation by speech therapy and a regular diet was recommended. CT scan of the abdomen pelvis above and notable for esophageal wall thickening consistent with esophagitis.� The patient had history of esophagitis as
well as Scherer's esophagus and PUD (with h/o GIB) however was not on PPI on admission.� She was started on a proton pump inhibitor that was increased to twice daily. She was started on Carafate. GI saw the patient in consultation. She will have
GI follow-up after discharge and outpatient endoscopy may be scheduled.
Discharge Plan
-
Patient Disposition: Longterm/SNF
Discharge Diagnosis/Procedures: Sepsis secondary to urinary tract infection
Dysphagia
Ambulatory dysfunction
history of left tibial plateau fracture
Scherer's esophagus
Condition: Good
Diet: Other diet
Additional Diets: heart healthy
Activity: Other activity
Additional Activity: 50% partial weight bearing LLE for next 4-6 weeks.
Driving Restrictions: No driving
Bathing Restrictions: None
Other Services: PT and OT
Referrals:
Castillo Forman MD [Active] - (call GI office to arrange OP office visit to discuss repeat EGD. Noted with gastric ulcer in May and recommended repeat to assess for healing. Can also discuss if would like to proceed with colonoscopy with weight
loss. )
Nam Darling MD [Active] - in one to two weeks
UNKNOWN - PT NOT,INTERVIEWE [Family Provider] - in less than 1 week
Prescriptions:
New
sucralfate 100 mg/mL Suspension
1 g PO ACHS Qty: 0 0RF
docusate sodium 100 mg Capsule
100 mg PO BID Qty: 0 0RF
ipratropium-albuterol 0.5 mg-3 mg(2.5 mg base)/3 mL Solution For Nebulization
3 ml inhalation R Q4HPRN PRN (Reason: sob or wheezing) Qty: 0 0RF
polyethylene glycol 3350 [HealthyLax] 17 gram Powder In Packet
17 g PO DAILY Qty: 0 0RF
pantoprazole [Protonix] 40 mg tablet,delayed release (DR/EC)
40 mg PO BID Qty: 1 0RF
Continued
atorvastatin 40 MG tablet
40 mg PO HS
aspirin 81 MG tablet,delayed release (DR/EC)
81 mg PO DAILY
cyanocobalamin (vitamin B-12) [Vitamin B-12] 1,000 mcg Tablet
1,000 mcg PO DAILY
cholecalciferol (vitamin D3) [Vitamin D3] 25 mcg (1,000 unit) Tablet
25 mcg PO DAILY
acetaminophen 325 mg Tablet
650 mg PO Q4HPRN PRN (Reason: mild pain/RODAS) Qty: 1 0RF
clonazepam 1 mg Tablet
1 mg PO HS Qty: 3 0RF
Discontinued
temazepam 30 mg Capsule
30 mg PO HS
Patient Comments:
06/15/2023: last filled 05/29/23, 30 tabs for [address] [id number]
Discharge Orders:
Discharge Patient (As Directed); Ordered 07/07/23
Ordered By: Alexander Lambert
[2023-07-07 15:00] VITALS: BP 136/57
--- NOTE | 2023-07-07 15:06 | PTCARENOTE ---
Report called to Mica Steiner RN. Patient pending ambulance apple picking supervisor at 1730.
--- NOTE | 2023-07-07 15:42 | CM ---
CM following re: d/c planning
Chart reviewed
Pt is medically stable for d/c and will be transferred to SNF
LOMN & in house transport forms completed and provided to --transport confirmed for 5:00pm
CM has spoken with the patient's daughter daily and she is happy to know of mom's transfer to [facility]
Updated clinical information sent via maye jane and Kraig who is covering for admissions acknowledged receipt
Pt noted to be partial wt bearing of LLE for the next 4-6 weeks and will f/u with GI is recommended outpatient
No additional d/c needs to note
PLAN: d/c to [facility]
Report: [phone]
--- NOTE | 2023-07-07 16:21 | PTCARENOTE ---
Patient left via stretcher with ambulance crew to [facility]. Vital signs stable.
== END 2023-07-07 17:00 | DRG 871 ==
LOC: 4 EAST ACU 19:54
PROVIDERS: Clinical Nurse Specialist Family Health; Emergency Medicine; Physician Assistant; ADMITTING PHYSICIAN Internal Medicine; ATTENDING PHYSICIAN Internal Medicine; CONSULT PHYSICIAN Internal Medicine Gastroenterology; EMERGENCY PHYSICIAN Emergency Medicine
DX: A41.9 Sepsis, unspecified organism (principal); G92.8 Other toxic encephalopathy; N39.0 Urinary tract infection, site not specified; E87.1 Hypo-osmolality and hyponatremia; R64 Cachexia; Z68.1 Body mass index [BMI] 19.9 or less, adult; E44.0 Moderate protein-calorie malnutrition; D61.818 Other pancytopenia; Z66 Do not resuscitate; F17.210 Nicotine dependence, cigarettes, uncomplicated; E78.00 Pure hypercholesterolemia, unspecified; I69.398 Other sequelae of cerebral infarction; M21.331 Wrist drop, right wrist; D47.3 Essential (hemorrhagic) thrombocythemia; K22.70 Barrett's esophagus without dysplasia; F41.9 Anxiety disorder, unspecified; F32.A Depression, unspecified; G47.00 Insomnia, unspecified; G89.29 Other chronic pain; I73.9 Peripheral vascular disease, unspecified; H54.62 Unqualified visual loss, left eye, normal vision right eye; S82.143D Displaced bicondylar fracture of unspecified tibia, subsequent encounter for closed fracture with routine healing; X58.XXXD Exposure to other specified factors, subsequent encounter; E87.6 Hypokalemia; D63.8 Anemia in other chronic diseases classified elsewhere; G47.30 Sleep apnea, unspecified; I10 Essential (primary) hypertension; R13.10 Dysphagia, unspecified; K20.90 Esophagitis, unspecified without bleeding; Z79.82 Long term (current) use of aspirin; Z79.899 Other long term (current) drug therapy; Z99.3 Dependence on wheelchair
CPT/HCPCS: 70450; 71046; 73560; 74176; 80048; 80053; 81003; 81015; 82077; 82805; 83605; 83930; 85025; 87040; 87077; 87086; 87186; 92526; 92610; 94640; 96361; 96374; 97162; 97167; 97530; 97535; 99285; 99406

== ENCOUNTER 2024-08-15 11:06 | Emergency (ER) | payer OTHER, SELFPAY ==
[2024-08-15] VITALS (9 sets, daily range): BP systolic 109–140; BP diastolic 52–101; PULSE 87; O2SAT 98; BMI 17.4
--- NOTE | 2024-08-15 11:39 | ED.GENMED ---
History of Present Illness
General
Chief Complaint: Musculo-Skeletal Complaint
Time Seen by Provider: 08/15/24 11:12
History of Present Illness
History of Present Illness:
78-year-old female with history of CVA with wheelchair-bound status presenting after a fall. Patient reports that her helps her at home get around the house. She was going down the stairs, holding onto the railing while her helped
her down the stairs. At the last step, she fell and injured her right ankle. Denies any additional injuries in the fall. Did hit her right upper extremity, however denies pain. Denies any head injury. She went to see the floor care technician for the pain
in her foot and ankle who wrapped her ankle and ordered x-rays, however due to her symptoms, was unable to go get the x-rays. Denies numbness or tingling to the foot. Denies additional acute medical complaints
Past History
Past History
ED Past Medical History: CVA (X 3), HTN, Hypercholesterolemia, Psychiatric (Anxiety) and Other (Left leg fracture, Back and neck pain. Spinal fractures, PVD, Blind left eye, )
ED Past Surgical History: None, Orthopedic (Right femur fracture repair), Tonsilectomy and Other (Cataracts, Depression)
Social History
Tobacco: Smoker
Alcohol: Occasional
Personal:
Living: with family
Employment: Not employed
Phy Exam
Physical Exam
Physical Exam:
General: Well-appearing, no clinical signs of dehydration, nontoxic and in no acute distress
HEENT: protecting airway
Neck: appears supple
CV: Normal heart rate
Resp: No accessory muscle use, no increased work of breathing
Abd: Soft and non-distended, no tenderness to palpation, normal bowel sounds
Extremities: No obvious deformity to the right foot or ankle, however slight swelling at the medial aspect of the ankle with diffuse tenderness on palpation. Palpable pulses and normal sensation. Unable to complete range of motion exercises
secondary to her pain.
Neuro: alert, upper and lower extremity contractures from previous strokes
: deferred
Rectal: deferred
Psych: Normal affect
Skin: Intact
Course
Orders/Labs/Results
Orders:
Orders
08/15/24 11:20
Ankle, Right 3 view CR [CR Ankle - Right Min 3 Views *] Urgent
Comment:
Reason For Exam: fall, pain medially
Foot, Right 3 View [CR Foot - Right Min 3 Views] Urgent
Comment:
Reason For Exam: fall, pain medially
08/15/24 11:21
Oxycodone/Acetaminophen [Percocet 5/325] 1 tablet PO NOW STA
08/15/24 12:37
Case Management Consult ONCE
Case Management Consult: Discharge Planning
08/15/24 13:12
Physical Therapy Consult [Pt Eval And Treat] Urgent
Activity Level: Out of Bed- Chair
Vital Signs
Initial and Last Documented VS:
Initial Vital Signs
Pulse Resp Pulse Ox
95 18 96
08/15/24 11:08 08/15/24 11:08 08/15/24 11:08
Last Documented Vital Signs
Temp Pulse Resp BP Pulse Ox
98.2 F 92 22 139/67 96
08/15/24 11:19 08/15/24 11:19 08/15/24 11:19 08/15/24 11:19 08/15/24 11:19
MDM/Problems Addressed
MDM/Problems Addressed:
78-year-old female with history of CVA with wheelchair-bound status presenting for right foot and ankle pain after a fall yesterday. Vital signs on arrival are normal.
On exam, patient is in no acute distress, however parent comfortable with any type of movement of the right lower extremity. Generalized tenderness, particularly at the medial aspect of the ankle. Suspected fracture. No neurovascular compromise.
No additional signs of trauma, with the exception of some scattered bruising to the right upper extremity without any pain or tenderness. Plan for x-ray imaging of the foot and ankle. Percocet administered for pain.
12:30 -x-ray confirms a distal tibial fracture. Without significant displacement. Will splint. Patient does not feel comfortable going home given her disabilities. Will consult with case management
13:30 -patient splinted with a posterior short leg with stirrup. Per case management, unable to place today given insurance, recommending admission.
14:30 -patient no longer wants to go to rehab. PT did come to evaluate and patient refused any therapies. She also refused home physical therapy. At this time she is requesting to go home. Explained concern and patient going home, given that she
will unable to do transfers at home. She notes that she has been laying in the bed for the past 14 months, and would like to proceed with going home. Explained in detail that she will need to follow-up with orthopedic doctor. Return precautions
discussed
*Critical Care Note
Total Time (30-74mins, 75-104mins- exclusive of procedures): Not Applicable
ED Attending Note
-
Portions of this chart may have been created with voice recognition software.� Occasional wrong word or��sound alike� substitutions may have occurred due to the inherent limitations of voice recognition software.
Discharge Plan
Departure
Prescriptions:
No Action
atorvastatin 40 MG tablet
40 mg PO HS
aspirin 81 MG tablet,delayed release (DR/EC)
81 mg PO DAILY
cyanocobalamin (vitamin B-12) [Vitamin B-12] 1,000 mcg Tablet
1,000 mcg PO DAILY
cholecalciferol (vitamin D3) [Vitamin D3] 25 mcg (1,000 unit) Tablet
25 mcg PO DAILY
acetaminophen 325 mg Tablet
650 mg PO Q4HPRN PRN (Reason: mild pain/RODAS) Qty: 1 0RF
sucralfate 100 mg/mL Suspension
1 g PO ACHS Qty: 0 0RF
docusate sodium 100 mg Capsule
100 mg PO BID Qty: 0 0RF
ipratropium-albuterol 0.5 mg-3 mg(2.5 mg base)/3 mL Solution For Nebulization
3 ml inhalation R Q4HPRN PRN (Reason: sob or wheezing) Qty: 0 0RF
polyethylene glycol 3350 [HealthyLax] 17 gram Powder In Packet
17 g PO DAILY Qty: 0 0RF
pantoprazole [Protonix] 40 mg tablet,delayed release (DR/EC)
40 mg PO BID Qty: 1 0RF
clonazepam 1 mg Tablet
1 mg PO HS Qty: 3 0RF
Referrals:
Vasu Fernando MD [Family Provider] -
Interventions
Interventions:
*Risk Screen - Suicide Last Done: 08/15/24 11:19
*General Assessment Last Done: 08/15/24 11:19
*Neglect/Abuse Screening Last Done: 08/15/24 11:19
*ED- Fall Risk Assessment Last Done: 08/15/24 11:19
*ED COVID-19 Vaccine History Last Done: 08/15/24 11:19
ED-Musculoskeletal Assessment Last Done: 08/15/24 11:27
Discharge Date and Time
Print Language: BELARUSIAN
[2024-08-15] MEDS: PERCOCET 5/325 1 TABLET PO (11:54)
--- NOTE | 2024-08-15 13:53 | CM ---
Patient seen bedside in the ED. Initial assessment completed. Patient is a 78-year-old female with history of CVA with wheelchair-bound status presenting after a fall. Patient is w/ ankle fx. Patient had previous admission (06/27-07/06), d/c to
[facility].
Patient reports that she resides w/ spouse in a single story rancher style home- 5 or 6 steps to enter. Patient is w/c bound, is dependent on spouse to assist w/ ADLs and caregiving. Patient has additional mauro walker, 2 commodes, grab bars and
shower chair. Patient was prev at [facility] for SNF, also known to [facility]. Patient prev known to [facility]. Patient reported that she primarily lays in bed and spouse assists w/ transfers in and out of w/c.
Address, point of contact and insurance verified. Secondary contact is spouse- Santy Kelly [phone]
PCP: Vasu Fernando
Pharmacy: [facility]
PT order placed. Patient shared w/ ED hospitalist that she wants rehab. CM discussed w/ patient rehab and will need to work w/ PT due to insurance auth need. Patient shared she is unable to walk and wouldn't be able to work w/ PT in the hospital or
at a facility and rather d/c home. CM inquired if spouse will be able to manage patient w/ ankle fx at home, patient stated spouse will 'bitch, complain and moan but will do it'. Patient still agreeable to see PT.
Plan: Home w/ support vs SNF
== END 2024-08-15 17:14 | disposition home or self-care (01) ==
LOC: EMR 11:06
PROVIDERS: EMERGENCY PHYSICIAN Student in an Organized Health Care Education/Training Program; FAMILY PHYSICIAN Family Medicine
DX: S82.891A Other fracture of right lower leg, initial encounter for closed fracture (principal); W19.XXXA Unspecified fall, initial encounter; I10 Essential (primary) hypertension; E78.00 Pure hypercholesterolemia, unspecified; F41.9 Anxiety disorder, unspecified; F17.200 Nicotine dependence, unspecified, uncomplicated; H54.62 Unqualified visual loss, left eye, normal vision right eye; Z86.73 Personal history of transient ischemic attack (TIA), and cerebral infarction without residual deficits; Z99.3 Dependence on wheelchair
CPT/HCPCS: 99283; 73610; 73630

== ENCOUNTER 2024-11-09 17:48 | Emergency (ER) | payer OTHER, SELFPAY ==
[2024-11-09 17:51] VITALS: BP 179/83
[2024-11-09 18:07] LABS: Hematocrit 29.2 % (37.0-47.0); Hemoglobin 10.2 g/dL (12.0-16.0); Mean Corp Hgb Conc. 34.9 g/dL (33.0-37.0); Mean Corpuscular Volume 125.3 fL (81.0-99.0); Nucleated Red Blood Cells % 0 %; Platelet Count 186 10^3/uL (130-400); Red Cell Dist. Width 14.2 % (11.5-14.5)
[2024-11-09 18:22] LABS: COVID-19 Antigen Negative (Negative)
[2024-11-09 18:32] LABS: ALT (SGPT) 14 U/L (0-35); AST (SGOT) 27 U/L (14-36); Albumin 4.7 g/dl (3.5-5.0); Alkaline Phosphatase 83 U/L (38-126); Blood Urea Nitrogen 9 mg/dl (7-17); Calcium 9.0 mg/dl (8.4-10.2); Carbon Dioxide 21 mmol/L (22-30); Chloride 105 mmol/L (98-107); Glucose 88 mg/dl (70-99); Potassium 4.3 mmol/L (3.5-5.1); Sodium 137 mmol/L (135-145); Total Protein 7.5 g/dl (6.3-8.2); eGFR > 60.00
[2024-11-09 21:39] VITALS: BMI 17.1
[2024-11-09 22:00] VITALS: BP 137/80
--- NOTE | 2024-11-09 22:16 | ED.GENMED ---
History of Present Illness
<Gilbert De León MD, Resident - Last Filed: 11/09/24 23:01>
General
Chief Complaint: Cough
Source: patient
Exam Limitations: none
Time Seen by Provider: 11/09/24 21:45
Nursing documentation reviewed up to this point in time: agreed with
History of Present Illness
History of Present Illness:
Patient is a 79-year-old female with multiple comorbidities including hypertension, hyperlipidemia, CVA, thrombocytopenia, CVA X3 presenting in the emergency department with worsening cough which started when she woke up today and she cannot stop
coughing. Reports that she had some mucus as well but it was mostly clear. Denies any fevers or chills. Denies any trouble breathing. Denies any recent sick contacts or recent sickness. Denies any recent changes in the medication. Denies any
chest pain. She decided to come to the emergency department with concerns that she might have a pneumonia.
Past History
<Gilbert De León MD, Resident - Last Filed: 11/09/24 23:01>
Past History
ED Past Medical History: CVA (X 3), HTN, Hypercholesterolemia, Psychiatric (Anxiety) and Other (Left leg fracture, Back and neck pain. Spinal fractures, PVD, Blind left eye, )
ED Past Surgical History: Orthopedic (Right femur fracture repair), Tonsilectomy and Other (Cataracts, Depression)
Social History
Tobacco: Smoker (Half pack per day since the age of 13)
Alcohol: Occasional
Personal:
Living: with family
Employment: Not employed
Review of Systems
<Gilbert De León MD, Resident - Last Filed: 11/09/24 23:01>
Review of Systems
Allergies reviewed?: Yes
Constitutional: Denies fever or chills
EENT: Denies sore throat or runny nose
Respiratory: Reports cough; Denies hemoptysis or trouble breathing
Cardiac: Denies chest pain or diaphoresis
ABD/GI: Denies abdominal pain, nausea or vomiting
: Denies dysuria
Musculoskeletal: Denies joint pain
Skin: Denies itching
Neurological: Denies dizzy, headache or weakness
Phy Exam
<Gilbert De León MD, Resident - Last Filed: 11/09/24 23:01>
General Physical Exam
General Presentation: no apparent distress
General age: appears stated age
General Skin: warm
General Habitus: frail
General Mental: alert
Cardiovascular Exam
Cardiovascular Exam: regular rate/rhythm and no murmur
Pulmonary Exam
Pulmonary Exam: lungs clear, no respiratory distress, no rales, no crackles, no rhonchi and no wheezing
Gastrointestinal Exam
Gastrointestinal Exam: normal bowel sounds, non tender and soft
Course
<Gilbert De León MD, Resident - Last Filed: 11/09/24 23:01>
Orders/Labs/Results
Orders:
Orders
11/09/24 18:00
COVID-19 Antigen Urgent
Source: Nasal Swab
Complete Blood Count/With Diff Urgent
Comprehensive Metabolic Panel Urgent
Influenza A+B Rapid Molecular Urgent
LYNDSAY Source: Nasal Swab
Specimen Description:
11/09/24 21:54
Chest [CR Chest - 2 Views ] Urgent
Comment:
Reason For Exam: cough
11/09/24 22:19
Dexamethasone Pf [Decadron] 10 mg PO NOW STA
Ipratropium/Albuterol Sulfate [Duoneb] 3 ml INH R NOW STA
Abnormal Lab Results
11/09/24
18:00
WBC 4.1 L 10^3/uL
(4.8-10.8)
RBC 2.33 L 10^6/uL
(4.20-5.40)
Hgb 10.2 L g/dL
(12.0-16.0)
Hct 29.2 L %
(37.0-47.0)
MCV 125.3 H fL
(81.0-99.0)
MCH 43.8 H pg
(27.0-31.0)
MPV 10.7 H fL
(7.4-10.4)
Monocytes % 10.0 H %
(1.7-9.3)
Carbon Dioxide 21 L mmol/L
(22-30)
11/09/24 18:00
11/09/24 18:00
Vital Signs
Initial and Last Documented VS:
Initial Vital Signs
Temp Pulse Resp BP Pulse Ox
98.6 F 93 18 179/83 95
11/09/24 17:51 11/09/24 17:51 11/09/24 17:51 11/09/24 17:51 11/09/24 17:51
Last Documented Vital Signs
Temp Pulse Resp BP Pulse Ox
98.6 F 90 22 137/80 95
11/09/24 17:51 11/09/24 22:15 11/09/24 22:01 11/09/24 22:00 11/09/24 22:21
<Cem Ashby, DO - Last Filed: 11/09/24 22:22>
Orders/Labs/Results
Orders:
Orders
11/09/24 18:00
COVID-19 Antigen Urgent
Source: Nasal Swab
Complete Blood Count/With Diff Urgent
Comprehensive Metabolic Panel Urgent
Influenza A+B Rapid Molecular Urgent
LYNDSAY Source: Nasal Swab
Specimen Description:
11/09/24 21:54
Chest [CR Chest - 2 Views ] Urgent
Comment:
Reason For Exam: cough
11/09/24 22:19
Dexamethasone Pf [Decadron] 10 mg PO NOW STA
Ipratropium/Albuterol Sulfate [Duoneb] 3 ml INH R NOW STA
Abnormal Lab Results
11/09/24
18:00
WBC 4.1 L 10^3/uL
(4.8-10.8)
RBC 2.33 L 10^6/uL
(4.20-5.40)
Hgb 10.2 L g/dL
(12.0-16.0)
Hct 29.2 L %
(37.0-47.0)
MCV 125.3 H fL
(81.0-99.0)
MCH 43.8 H pg
(27.0-31.0)
MPV 10.7 H fL
(7.4-10.4)
Monocytes % 10.0 H %
(1.7-9.3)
Carbon Dioxide 21 L mmol/L
(22-30)
11/09/24 18:00
11/09/24 18:00
Vital Signs
Initial and Last Documented VS:
Initial Vital Signs
Temp Pulse Resp BP Pulse Ox
98.6 F 93 18 179/83 95
11/09/24 17:51 11/09/24 17:51 11/09/24 17:51 11/09/24 17:51 11/09/24 17:51
Last Documented Vital Signs
Temp Pulse Resp BP Pulse Ox
98.6 F 90 22 137/80 95
11/09/24 17:51 11/09/24 22:15 11/09/24 22:01 11/09/24 22:00 11/09/24 22:21
<Gilbert De León MD, Resident - Last Filed: 11/09/24 23:01>
MDM/Problems Addressed
Differential Diagnosis Includes:
viral bronchitis vs copd exac vs pna sv gerd
MDM/Problems Addressed:
CBC with hemoglobin of 10.2. CMP unremarkable.
COVID and flu negative
Will get chest x-ray
Rx: DuoNeb and 10 mg Decadron p.o.
If there is no clear finding on the chest x-ray we will consider azithromycin given her long history of smoking and recent change in sputum production.
update:
CXR with No acute cardiopulmonary process
will give albuterol inhaler upon d/c
prednisone 40mg x3 days
azithromycin 500mg today in ER and 250 mg for next 4 days.
Patient encouraged to quit smoking.
Shared decision with the patient for discharge. Patient is stable for discharge. Advised to come back to the emergency department if she develops any trouble breathing, chest pain or any worsening of the current symptoms.
Chronic conditions affecting care: HTN and Psychiatric illness
<Gilbert De León MD, Resident - Last Filed: 11/09/24 23:01>
*Pulse Oximetry
SaO2: 95
Oxygen Mode of Delivery: Room air
Patient hypoxic: no
*Critical Care Note
Total Time (30-74mins, 75-104mins- exclusive of procedures): Not Applicable
ED Attending Note
<Gilbert De León MD, Resident - Last Filed: 11/09/24 23:01>
-
Portions of this chart may have been created with voice recognition software.� Occasional wrong word or��sound alike� substitutions may have occurred due to the inherent limitations of voice recognition software.
<Cem Ashby, DO - Last Filed: 11/09/24 22:22>
ED Attending Note
Patient seen and examined by attending physician: Yes
I performed a history and physical exam of patient and discussed management with resident, I reviewed resident's note and agree with documented findings and plan of care.: Yes
ED Attending Note:
I have seen and evaluated the patient with a [id number] encounter. I have spoken to the resident and involved in the medical history, the physical exam, medical decision making.
Evaluation and management service: agree unless noted differently below.
Results interpretation: agree unless noted differently below.
Focused HPI: 79-year-old female presenting with worsening cough since this morning. She describes the cough as clear mucus. She is an active smoker but denies a prior history of COPD. She denies chest pain
Physical exam: Weak and frail. Prolonged expiratory phase. Decreased breath sounds
Medical Decision Making: Will treat as bronchospasm with DuoNeb and Decadron. Will obtain chest x-ray but will likely start azithromycin regardless given her smoking history with change in sputum production
Discharge Plan
Departure
Patient Disposition: Home (Routine Discharge)
Date of Disposition: 11/09/24
Time of Disposition: 22:59
Patient with high blood pressure during this ER visit?: Yes
Condition: Fair
Covid-19: Negative COVID-19
Discharge Problem:
Productive cough, Bronchospasm
Instructions: Cough, Adult (DC), Quitting smoking - ED discharge instructions, BLOOD PRESSURE
Prescriptions:
New
azithromycin [Zithromax] 250 mg tablet
250 mg PO DAILY Qty: 4 0RF
prednisone 10 mg tablet
40 mg PO DIRECTED Qty: 12 0RF
Rx Instructions:
Take 40mg(4 tablets of 10 mg) by mouth daily for 3 days
albuterol sulfate [Ventolin HFA] 90 mcg/actuation HFA aerosol inhaler
2 puff inhalation Q6H PRN (Reason: shortness of breath or wheezing) Qty: 6.7 0RF
No Action
atorvastatin 40 MG tablet
40 mg PO HS
aspirin 81 MG tablet,delayed release (DR/EC)
81 mg PO DAILY
cyanocobalamin (vitamin B-12) [Vitamin B-12] 1,000 mcg Tablet
1,000 mcg PO DAILY
cholecalciferol (vitamin D3) [Vitamin D3] 25 mcg (1,000 unit) Tablet
25 mcg PO DAILY
acetaminophen 325 mg Tablet
650 mg PO Q4HPRN PRN (Reason: mild pain/RODAS) Qty: 1 0RF
sucralfate 100 mg/mL Suspension
1 g PO ACHS Qty: 0 0RF
docusate sodium 100 mg Capsule
100 mg PO BID Qty: 0 0RF
ipratropium-albuterol 0.5 mg-3 mg(2.5 mg base)/3 mL Solution For Nebulization
3 ml inhalation R Q4HPRN PRN (Reason: sob or wheezing) Qty: 0 0RF
polyethylene glycol 3350 [HealthyLax] 17 gram Powder In Packet
17 g PO DAILY Qty: 0 0RF
pantoprazole [Protonix] 40 mg tablet,delayed release (DR/EC)
40 mg PO BID Qty: 1 0RF
clonazepam 1 mg Tablet
1 mg PO HS Qty: 3 0RF
Referrals:
Vasu Fernando MD [Family Provider, Family Practice] - Follow up in 1 week
Activity Restrictions/Additional Instructions:
You were seen in the [facility] emergency department today for concerns of cough. While you were here we performed blood work including complete blood count, complete metabolic panel; showed unremarkable with known chronic anemia. Tested
you for COVID�19, influenza; both were negative. Chest x-ray with no acute cardiopulmonary process. While you are in the hospital you received 1 session of DuoNeb, 10 mg of Decadron and 1 dose of 500 mg azithromycin. Please take 250 mg
azithromycin daily for next 4 days. Take prednisone 40 mg daily for next 3 days. Take albuterol inhaler as needed for trouble breathing/wheezing. Please return to the emergency department if you develop worsening of current symptoms, any
shortness of breath, chest pain or any worrisome symptoms
Interventions
Interventions:
*Risk Screen - Suicide Last Done: 11/09/24 17:53
*General Assessment Last Done: 11/09/24 17:52
*Neglect/Abuse Screening Last Done: 11/09/24 17:53
Discharge Date and Time
Print Language: PASHTO
[2024-11-09] MEDS: DECADRON 10 MG PO (22:35)
[2024-11-09] MEDS: DUONEB 3 ML INH (22:36)
[2024-11-09] MEDS: ZITHROMAX 500 MG PO (22:55)
[2024-11-09 23:00] VITALS: BP 144/74
[2024-11-10] VITALS: BP 128/62
[2024-11-10 02:13] VITALS: BP 124/62
== END 2024-11-10 02:16 | disposition home or self-care (01) ==
LOC: EMR 17:48
PROVIDERS: Emergency Medicine; EMERGENCY PHYSICIAN Student in an Organized Health Care Education/Training Program; FAMILY PHYSICIAN Family Medicine
DX: J98.01 Acute bronchospasm (principal); R05.8 Other specified cough; E78.00 Pure hypercholesterolemia, unspecified; I10 Essential (primary) hypertension; Z86.73 Personal history of transient ischemic attack (TIA), and cerebral infarction without residual deficits; F17.210 Nicotine dependence, cigarettes, uncomplicated; Z11.52 Encounter for screening for COVID-19
CPT/HCPCS: 94640; 99284; 71046; 80053; 85025; 87502; 87811